=== PATIENT | male | born 1995 | race Two or more races ===

== ENCOUNTER 2017-11-24 12:11 | Emergency (ER) | payer OTHER ==
[2017-11-24 12:33] VITALS: BMI 26.2
--- NOTE | 2017-11-24 13:58 | PDOC ---
History of Present Illness - General Chief Complaint: Weakness Stated Complaint: EVALUATION Time Seen by Provider: 11/24/17 13:57 History Source: [facility] Records Exam Limitations: Clinical Condition - History of Present Illness Initial Comments: 11/24/17 15:02 22M with CP, seizure disorder and MR from [facility] present to the Ed with unconsolable crying and refusal to eat since this morning. Recently hospitalized at [facility] for pneumonia. Vital at this home were 100.5, RR:22, 98%RA, HR:87, BP:140/89. Given tylenol, simethicone, and benadryl. Past History - Past Medical History Allergies/Adverse Reactions: Allergies Allergy/AdvReac Type Severity Reaction Status Date / Time No Known Allergies Allergy Verified 11/24/17 12:35 Home Medications: Ambulatory Orders Amoxicillin Suspension - 400 mg PO BID #100 ml 11/24/17 COPD: No Other medical history: Developemental delay, MR - Suicide/Smoking/Psychosocial Hx Smoking History: Never smoked Have you smoked in the past 12 months: No Information on smoking cessation initiated: No Hx Alcohol Use: No Drug/Substance Use Hx: No Substance Use Type: None Review of Systems - Review of Systems Able to Perform ROS?: No (non-verbal) *Physical Exam - Vital Signs Last Vital Signs Temp Pulse Resp BP Pulse Ox 98.9 F 90 18 116/70 98 11/24/17 12:26 11/24/17 12:26 11/24/17 12:26 11/24/17 12:26 11/24/17 12:26 - Physical Exam General Appearance: Yes: Nourished, Appropriately Dressed, Moderate Distress HEENT: positive: EOMI, [place], TM Bulging, TM Dull (right sided.) Neck: negative: Tender Respiratory/Chest: negative: Chest Tender Cardiovascular: positive: Regular Rhythm, Regular Rate, S1, S2 Gastrointestinal/Abdominal: positive: Normal Bowel Sounds, Flat. negative: Tender Musculoskeletal: positive: Normal Inspection. negative: CVA Tenderness Extremity: positive: Normal Capillary Refill, Normal Inspection Medical Decision Making - Medical Decision Making 11/24/17 15:13 Right tympanic membrane looks dull possibly inflammed will treat for Otitis Media with amoxicillin suspension. . *DC/Admit/Observation/Transfer Diagnosis at time of Disposition: Otitis media - Discharge Dispostion Disposition: HOME Condition at time of disposition: Improved Admit: No - Prescriptions Prescriptions: Amoxicillin Suspension - 400 mg PO BID #100 ml - Referrals - Patient Instructions Printed Discharge Instructions: DI for Otitis Externa Additional Instructions: Come back to the emergency department for any new, worsening or concerning symptoms. Take amoxicillin prescription as directed - Post Discharge Activity
--- NOTE | 2017-11-24 13:59 | PDOC ---
Attending Attestation - Resident Resident Name: Clark Ayala - HPI HPI: 11/24/17 15:18 Pt presents to the ED after brought in from his residential for persistent crying. patient has a history of cerebral palsy and is non verbal at baseline. patient has been tolerating his normal diet and has been afebrile, as per his career development counselor. - Physicial Exam PE: 11/24/17 15:20 Agree with resident exam. Patient is intermittently crying and holding his ears. Lungs are clear. TM is occluded with cerumen on the R side, but is dull and ertythematous on the left side. - Medical Decision Making 11/24/17 15:23 Pt presents to the ED complaining of crying. + dull erythematous TM consistent with otitis. Will treat with amoxicillin. patient is otherwise well appearing , pain appears to be improved after tylenol and will discharge home.
[2017-11-24 14:30] VITALS: TEMP 100.1
[2017-11-24] MEDS ORDERED: AMOXICILLIN ORAL SUSPENSION - 400 MG/5 ML PO ONE (14:49)
[2017-11-24] MEDS ORDERED: AMOXICILLIN ORAL SUSPENSION - 250 MG/5 ML ONE (15:00)
[2017-11-24] MEDS ORDERED: IBUPROFEN 100 MG/5 ML UNIT DOSE CUPS PO ONE (15:09)
[2017-11-24] MEDS ORDERED: IBUPROFEN 100 MG/5 ML UNIT DOSE CUPS ONE (15:11)
[2017-11-24 15:24] VITALS: BP 110/62; PULSE 74
== END 2017-11-24 15:24 | disposition home or self-care (01) ==
LOC: JER 12:11
DX: H66.91 Otitis media, unspecified, right ear (principal); R62.50 Unspecified lack of expected normal physiological development in childhood; F79 Unspecified intellectual disabilities
CPT/HCPCS: 99282-25

== ENCOUNTER 2018-04-19 14:22 | Inpatient (IN) | payer OTHER ==
--- NOTE | 2018-04-19 15:31 | PDOC ---
History of Present Illness - History of Present Illness Initial Comments: 04/19/18 15:59 Mr. Vieyra is a 23 yo male w/ pmh of CP, Seizure disorder, and MR who presents from [facility] after he was observed to have fever/chills earlier today. Per [place] staff he was noted to have a temperature of 100.4; tylenol was given and temperature was 102.5 on recheck 2 hours later. At presentation to ER he was found to have pulse of 94 and oral temperature of 100.5 (confirmed with rectal temperature probe). No other issues known at this time. Allergies: NKDA <Sebastián Key - Last Filed: 04/19/18 16:04> <Christopher Suh - Last Filed: 04/19/18 19:32> - General Chief Complaint: SIRS, Suspected/Possible Stated Complaint: FEVER, SHAKING Time Seen by Provider: 04/19/18 15:27 Past History - Past Medical History COPD: No Other medical history: CEREBRAL PALSY, SEIZURE,DEVELOPMENTAL DELAY, MR, - Suicide/Smoking/Psychosocial Hx Smoking History: Never smoked Have you smoked in the past 12 months: No Hx Alcohol Use: No Drug/Substance Use Hx: No Substance Use Type: None <Sebastián Key - Last Filed: 04/19/18 16:04> <Christopher Suh - Last Filed: 04/19/18 19:32> - Past Medical History Allergies/Adverse Reactions: Allergies Allergy/AdvReac Type Severity Reaction Status Date / Time No Known Allergies Allergy Verified 04/19/18 14:58 Home Medications: Ambulatory Orders Diazepam 10 mg PO BID 04/19/18 Melatonin/Pyridoxine HCl (B6) [Melatonin 5 mg Tablet] 5 mg PO HS 04/19/18 Oxcarbazepine [Trileptal] 300 mg PO BID 04/19/18 Phenobarbital Liquid - [Phenobarbital Liquid 20 MG/5 ML -] 20 mg PO BID Review of Systems - Review of Systems Comments:: 04/19/18 16:01 Unable to obtain further. <Sebastián Key - Last Filed: 04/19/18 16:04> *Physical Exam - Vital Signs Last Vital Signs Temp Pulse Resp BP Pulse Ox 100.5 F H 94 H 19 119/62 97 04/19/18 14:58 04/19/18 14:58 04/19/18 14:58 04/19/18 14:58 04/19/18 14:58 - Physical Exam Comments: 04/19/18 16:01 GENERAL: Awake, alert, and oriented to baseline per aide who is with him, in no acute distress HEAD: No signs of trauma, normocephalic, atraumatic EYES: PERRLA, EOMI, sclera anicteric, conjunctiva clear ENT: Auricles normal inspection, nares patent, oropharynx clear without exudates. Moist mucosa NECK: Normal ROM, supple, no lymphadenopathy, JVD, or masses LUNGS: +Course breath sounds noted. No distress HEART: Regular rate and rhythm, normal S1 and S2, no murmurs, rubs or gallops, peripheral pulses normal and equal bilaterally. ABDOMEN: Soft, nontender, normoactive bowel sounds. No guarding, no rebound. No masses EXTREMITIES: Normal inspection, Normal range of motion, no edema. No clubbing or cyanosis. NEUROLOGICAL: Unable to assess. SKIN: Warm, Dry, normal turgor, no rashes or lesions noted. <Sebastián Key - Last Filed: 04/19/18 16:04> - Vital Signs Last Vital Signs Temp Pulse Resp BP Pulse Ox 100.5 F H 94 H 19 119/62 97 04/19/18 14:58 04/19/18 14:58 04/19/18 14:58 04/19/18 14:58 04/19/18 14:58 <Christopher Suh - Last Filed: 04/19/18 19:32> ED Treatment Course - LABORATORY CBC & Chemistry Diagram: 04/19/18 16:48 04/19/18 18:30 - ADDITIONAL ORDERS Additional order review: Laboratory Results 04/19/18 04/19/18 04/19/18 18:30 16:50 16:48 PT with INR INR PTT (Actin FS) VBG pH POC VBG pCO2 POC VBG pO2 Mixed VBG HCO3 Sodium 142 Potassium 4.1 Chloride 109 H Carbon Dioxide 26 Anion Gap 7 L BUN 19 H Creatinine 1.3 Creat Clearance w eGFR > 60 Random Glucose 80 Lactic Acid 1.1 Calcium 8.4 L Total Bilirubin 0.3 AST 23 ALT 37 Alkaline Phosphatase 90 Troponin I < 0.02 Total Protein 6.8 Albumin 3.7 Urine Color Urine Appearance Urine pH Ur Specific [place] Urine Protein Urine Glucose (UA) Urine Ketones Urine Blood Urine Nitrite Urine Bilirubin Urine Urobilinogen Ur Leukocyte Esterase Urine WBC (Auto) Urine RBC (Auto) Urine Mucus 04/19/18 04/19/18 04/19/18 16:48 16:48 16:00 PT with INR 12.50 INR 1.11 PTT (Actin FS) 34.7 H VBG pH 7.34 POC VBG pCO2 52.6 H POC VBG pO2 25.3 L Mixed VBG HCO3 27.8 H Sodium Cancelled Potassium Cancelled Chloride Cancelled Carbon Dioxide Cancelled Anion Gap Cancelled BUN Cancelled Creatinine Cancelled Creat Clearance w eGFR Cancelled Random Glucose Cancelled Lactic Acid Calcium Cancelled Total Bilirubin Cancelled AST Cancelled ALT Cancelled Alkaline Phosphatase Cancelled Troponin I Total Protein Cancelled Albumin Cancelled Urine Color Urine Appearance Urine pH Ur Specific [place] Urine Protein Urine Glucose (UA) Urine Ketones Urine Blood Urine Nitrite Urine Bilirubin Urine Urobilinogen Ur Leukocyte Esterase Urine WBC (Auto) Urine RBC (Auto) Urine Mucus 04/19/18 16:00 PT with INR INR PTT (Actin FS) VBG pH POC VBG pCO2 POC VBG pO2 Mixed VBG HCO3 Sodium Potassium Chloride Carbon Dioxide Anion Gap BUN Creatinine Creat Clearance w eGFR Random Glucose Lactic Acid Calcium Total Bilirubin AST ALT Alkaline Phosphatase Troponin I Total Protein Albumin Urine Color Ltyellow Urine Appearance Clear Urine pH 6.0 Ur Specific [place] 1.028 Urine Protein 2+ H Urine Glucose (UA) Negative Urine Ketones Trace H Urine Blood 3+ H Urine Nitrite Negative Urine Bilirubin Negative Urine Urobilinogen Negative Ur Leukocyte Esterase Negative Urine WBC (Auto) 4 Urine RBC (Auto) 139 Urine Mucus Rare 04/19/18 16:48 RBC 5.69 H MCV 91.4 MCHC 31.7 L RDW 17.3 H MPV 8.0 Neutrophils % 85.5 H Lymphocytes % 8.4 Monocytes % 5.3 Eosinophils % 0.3 Basophils % 0.5 - Medications Given in the ED: ED Medications Discontinued Medications Generic Name Dose Route Start Last Admin Trade Name Freq PRN Reason Stop Dose Admin Acetaminophen 650 mg 04/19/18 15:53 04/19/18 17:16 Tylenol Suppository - OR 04/19/18 15:54 650 mg ONCE ONE Administration Sodium Chloride 1,000 mls @ 1,000 mls/hr 04/19/18 15:48 04/19/18 17:38 Normal Saline - IV 04/19/18 16:47 1,000 mls/hr ASDIR STA Administration <Christopher Suh - Last Filed: 04/19/18 19:32> Medical Decision Making - Medical Decision Making 04/19/18 16:03 Mr. Vieyra is a 23 yo nonverbal male who presents from [facility] for fever of unknown origin. Sepsis protocol initiated. <Sebastián Key - Last Filed: 04/19/18 16:04> *DC/Admit/Observation/Transfer <Sebastián Key - Last Filed: 04/19/18 16:04> - Discharge Dispostion Decision to Admit order: Yes <Christopher Suh - Last Filed: 04/19/18 19:32> Diagnosis at time of Disposition: Sepsis Qualifiers: Sepsis type: sepsis due to unspecified organism Qualified Code(s): A41.9 - Sepsis, unspecified organism - Discharge Dispostion Condition at time of disposition: Stable
[2018-04-19] MEDS ORDERED: SODIUM CHLORIDE 1,000 ML IV STA (15:48)
[2018-04-19] MEDS ORDERED: ACETAMINOPHEN 650 MG SUPP.RECT PR ONE (15:53)
--- NOTE | 2018-04-19 15:55 | PDOC ---
Attending Attestation - HPI HPI: 04/19/18 16:41 Pt is a 22 yo M resident from [facility] with a PMHx of Cerebral palsy, MR, Developmental delay, seizures who presents to the ED with persistent fever. As per caretakers, patient developed fever at the center, (Tmax 100.4) and was given Tylenol. Patient fever elevated to 102.0 and was sent to the ED for further evaluation. Patient denies cough, congestion, n/v, abdominal pain. - Medical Decision Making 04/19/18 16:42 Documentation prepared by Joann White, acting as medical technologist for Shakira Lopes MD <Joann White - Last Filed: 04/19/18 16:42> - Resident Resident Name: Sebastián Key - ED Attending Attestation I have performed the following: I have examined & evaluated the patient, The case was reviewed & discussed with the resident, I agree w/resident's findings & plan, Exceptions are as noted - Physicial Exam PE: GENERAL: Awake, alert, in no acute distress. Nonverbal. HEAD: No signs of trauma EYES: PERRLA, EOMI, sclera anicteric, conjunctiva clear ENT: Auricles normal inspection, hearing grossly normal, nares patent, oropharynx clear without exudates. Moist mucosa NECK: Normal ROM, supple, no lymphadenopathy, JVD, or masses LUNGS: Breath sounds equal, clear to auscultation bilaterally. No wheezes, and no crackles HEART: Regular rate and rhythm, normal S1 and S2, no murmurs, rubs or gallops ABDOMEN: Soft, nontender, normoactive bowel sounds. No guarding, no rebound. No masses EXTREMITIES: Normal range of motion, no edema. No clubbing or cyanosis. No cords, erythema, or tenderness NEUROLOGICAL: Cranial nerves II through XII grossly intact. Motor and sensation intact. SKIN: Warm, Dry, normal turgor, no rashes or lesions noted. +Tactile fever. - Medical Decision Making Pt nonverbal at baseline, presents with fever. Sepsis workup initiated. <Shakira Lopes - Last Filed: 04/22/18 17:53>
[2018-04-19] MEDS ORDERED: ACETAMINOPHEN INJECTION 100 ML IVPB ONE (15:57)
[2018-04-19 16:53] LABS: VENOUS PH 7.34 (7.32-7.42)
[2018-04-19] MEDS ORDERED: ACETAMINOPHEN 120 MG SUPP.RECT RC ONE (16:53)
[2018-04-19 16:54] LABS: VENOUS PC02 52.6 mmHg (38-52); VENOUS PO2 25.3 mmHg (28-48)
[2018-04-19] MEDS ORDERED: ACETAMINOPHEN 650 MG SUPP.RECT ONE (16:54)
[2018-04-19 16:55] LABS: BASO % 0.5 % (0-2.0); EOS % 0.3 % (0-4.5); HEMOGLOBIN 16.5 GM/dL (11.7-16.9); LYMPH % 8.4 % (8-40); MCH 28.9 pg (25.7-33.7); MCHC 31.7 g/dl (32.0-35.9); MEAN CELL VOLUME 91.4 fl (80-96); MONO % 5.3 % (3.8-10.2); NEUT % 85.5 % (42.8-82.8); PLATELET COUNT 245 K/MM3 (134-434); RBC 5.69 M/mm3 (4.00-5.60); RDW 17.3 % (11.9-15.9); WHITE BLOOD COUNT 16.2 K/mm3 (4.0-10.0)
[2018-04-19 17:11] LABS: INR 1.11 (0.82-1.09); PROTHROMBIN TIME (PATIENT) 12.5 SEC (9.7-13.0)
[2018-04-19 17:14] LABS: ACTIVATED PTT 34.7 SECONDS (26.9-34.4)
[2018-04-19 18:41] LABS: URINE APPEARANCE CLEAR; URINE BILIRUBIN NEGATIVE (<2.0 mg/dL); URINE COLOR LTYELLOW; URINE GLUCOSE (UA) NEGATIVE (NEGATIVE); URINE KETONE TRACE (NEGATIVE); URINE LEUK ESTERASE NEGATIVE (NEGATIVE); URINE NITRITE NEGATIVE (NEGATIVE); URINE UROBILINOGEN NEGATIVE mg/dL (0.2-1.0)
[2018-04-19 18:43] LABS: URINE PROTEIN 2+ (NEGATIVE)
[2018-04-19 18:46] LABS: URINE MUCUS RARE
[2018-04-19] MEDS ORDERED: PIPERACILLIN/TAZOB 3.375 GM 3.375 GM in DEXTROSE 5%-WATER - 50 ML IVPB ONE (18:47)
[2018-04-19] MEDS ORDERED: VANCOMYCIN 1,000 MG in DEXTROSE 5%-WATER - 250 ML IVPB ONE (18:47)
--- NOTE | 2018-04-19 19:00 | PDOC ---
*Physical Exam - Vital Signs Last Vital Signs Temp Pulse Resp BP Pulse Ox 100.5 F H 94 H 19 119/62 97 04/19/18 14:58 04/19/18 14:58 04/19/18 14:58 04/19/18 14:58 04/19/18 14:58 ED Treatment Course - LABORATORY CBC & Chemistry Diagram: 04/19/18 16:48 04/19/18 18:30 - ADDITIONAL ORDERS Additional order review: Laboratory Results 04/19/18 04/19/18 04/19/18 16:50 16:48 16:48 PT with INR INR PTT (Actin FS) VBG pH POC VBG pCO2 POC VBG pO2 Mixed VBG HCO3 Sodium Cancelled Potassium Cancelled Chloride Cancelled Carbon Dioxide Cancelled Anion Gap Cancelled BUN Cancelled Creatinine Cancelled Creat Clearance w eGFR Cancelled Random Glucose Cancelled Lactic Acid 1.1 Calcium Cancelled Total Bilirubin Cancelled AST Cancelled ALT Cancelled Alkaline Phosphatase Cancelled Troponin I < 0.02 Total Protein Cancelled Albumin Cancelled Urine Color Urine Appearance Urine pH Ur Specific [place] Urine Protein Urine Glucose (UA) Urine Ketones Urine Blood Urine Nitrite Urine Bilirubin Urine Urobilinogen Ur Leukocyte Esterase Urine WBC (Auto) Urine RBC (Auto) Urine Mucus 04/19/18 04/19/18 04/19/18 16:48 16:00 16:00 PT with INR 12.50 INR 1.11 PTT (Actin FS) 34.7 H VBG pH 7.34 POC VBG pCO2 52.6 H POC VBG pO2 25.3 L Mixed VBG HCO3 27.8 H Sodium Potassium Chloride Carbon Dioxide Anion Gap BUN Creatinine Creat Clearance w eGFR Random Glucose Lactic Acid Calcium Total Bilirubin AST ALT Alkaline Phosphatase Troponin I Total Protein Albumin Urine Color Ltyellow Urine Appearance Clear Urine pH 6.0 Ur Specific [place] 1.028 Urine Protein 2+ H Urine Glucose (UA) Negative Urine Ketones Trace H Urine Blood 3+ H Urine Nitrite Negative Urine Bilirubin Negative Urine Urobilinogen Negative Ur Leukocyte Esterase Negative Urine WBC (Auto) 4 Urine RBC (Auto) 139 Urine Mucus Rare 04/19/18 16:48 RBC 5.69 H MCV 91.4 MCHC 31.7 L RDW 17.3 H MPV 8.0 Neutrophils % 85.5 H Lymphocytes % 8.4 Monocytes % 5.3 Eosinophils % 0.3 Basophils % 0.5 - Medications Given in the ED: ED Medications Discontinued Medications Generic Name Dose Route Start Last Admin Trade Name Andrei PRN Reason Stop Dose Admin Acetaminophen 650 mg 04/19/18 15:53 04/19/18 17:16 Tylenol Suppository - AK 04/19/18 15:54 650 mg ONCE ONE Administration Sodium Chloride 1,000 mls @ 1,000 mls/hr 04/19/18 15:48 04/19/18 17:38 Normal Saline - IV 04/19/18 16:47 1,000 mls/hr ASDIR STA Administration Medical Decision Making - Medical Decision Making 04/19/18 18:53 23 yo male from [facility] p/w history of rigors and fevers 04/19/18 19:00 Review labs; leukocytosis w mild shift, cxr no infiltrates appreciable, urine no leuk,no nitrates blood cultures sent Empiric antibiotics started -PT ADMITTED W CONCERN FOR BACTEREMIA 04/19/18 22:34 *DC/Admit/Observation/Transfer Diagnosis at time of Disposition: Sepsis - Discharge Dispostion Condition at time of disposition: Stable - Referrals - Patient Instructions - Post Discharge Activity
[2018-04-19 19:02] LABS: ALBUMIN 3.7 g/dl (3.4-5.0); ALK PHOS 90 U/L (45-117); ANION GAP 7 (8-16); BILIRUBIN,TOTAL 0.3 mg/dL (0.2-1.0); BLOOD UREA NITROGEN 19 mg/dL (7-18); CALCIUM 8.4 mg/dL (8.5-10.1); CHLORIDE 109 mmol/L (98-107); CO2 26 mmol/L (21-32); CREATININE 1.3 mg/dL (0.7-1.3); GLUCOSE,RANDOM 80 mg/dL (74-106); POTASSIUM 4.1 mmol/L (3.5-5.1); SGOT/AST 23 U/L (15-37); SGPT/ALT 37 U/L (12-78); SODIUM 142 mmol/L (136-145); TOT PROT 6.8 g/dl (6.4-8.2)
[2018-04-19] MEDS ORDERED: VANCOMYCIN 1 GRAM (PRE-DOCKED) 1,000 MG/250 ML BAG IVPB ONE (19:18)
[2018-04-19] MEDS ORDERED: PIPERACILLIN/TAZOB 3.375 GM 3.375 GM/50 ML BAG IVPB ONE (19:18)
--- NOTE | 2018-04-19 19:20 | PN ---
Teaching Attending Note Name of Resident: Juliette Martinez ATTENDING PHYSICIAN STATEMENT I saw and evaluated the patient. I reviewed the resident's note and discussed the case with the resident. I agree with the resident's findings and plan as documented. SUBJECTIVE: Patient is a 23 year old man - a resident of [facility] with chief complaint of fever. He has Cerebral palsy, Mental retardation, Developmental delay, and seizures. He was in [facility] last week for fever and seizures and Keppra was added to his antiseizure regimen. He has also had intermittent seizures today as per the Aide for the Home. He is nonverbal and there has been no reported changes in his mental status. Tmax [id number] and there is no associated SOB, cough, congestion, nausea, vomiting, diarrhea or abdominal pain. Had left otitis media in November 2017. OBJECTIVE: Non verbal. Awake, in no acute distress Vital Signs Period Temp Pulse Resp BP Sys/Holly Pulse Ox Last 24 Hr 100.5 F 94 19 119/62 97 HEENT: No Jaundice, eye redness or discharge, PERRLA, EOMI. No oropharyngeal erythema. External ears are normal and nontender. No nasal discharge. Neck: Supple, nontender. No palpable adenopathy or thyromegaly. No JVD Chest: Good effort. Clear to auscultation and percussion. Heart: Regular. No S3, rub or murmur Abdomen: Not distended, soft, nontender and no HSM. No rebound or guarding. Normoactive bowel sounds. Ext: Peripheral pulses intact. No leg edema. Flexion contracture of lower extremities. No sacral decubitus ulcer. Skin: Warm and dry. No petechiae, rash or ecchymosis. Neuro: Alert. Nonverbal. Mental retardation. Moves upper extremities. No neck stiffness. Sensation grossly intact in all four extremities. Home Medications Medication Instructions Recorded Diazepam 10 mg PO BID 04/19/18 Melatonin/Pyridoxine HCl (B6) 5 mg PO HS 04/19/18 [Melatonin 5 mg Tablet] Oxcarbazepine [Trileptal] 300 mg PO BID 04/19/18 Phenobarbital Liquid - 20 mg PO BID 04/19/18 [Phenobarbital Liquid 20 MG/5 ML -] Current Medications Generic Name Dose Route Start Last Admin Trade Name Freq PRN Reason Stop Dose Admin Vancomycin HCl 1,000 mg/ 250 mls @ 166.667 mls/hr 04/19/18 18:47 Dextrose IVPB 04/19/18 20:16 ONCE ONE Protocol Laboratory Results - last 24 hr 04/19/18 04/19/18 04/19/18 16:00 16:00 16:48 WBC 16.2 H RBC 5.69 H Hgb 16.5 Hct 52.0 H MCV 91.4 MCH 28.9 MCHC 31.7 L RDW 17.3 H Plt Count 245 MPV 8.0 Neutrophils % 85.5 H Lymphocytes % 8.4 Monocytes % 5.3 Eosinophils % 0.3 Basophils % 0.5 Nucleated RBC % 0 PT with INR INR PTT (Actin FS) VBG pH 7.34 POC VBG pCO2 52.6 H POC VBG pO2 25.3 L Mixed VBG HCO3 27.8 H Sodium Potassium Chloride Carbon Dioxide Anion Gap BUN Creatinine Creat Clearance w eGFR Random Glucose Lactic Acid Calcium Total Bilirubin AST ALT Alkaline Phosphatase Troponin I Total Protein Albumin Urine Color Ltyellow Urine Appearance Clear Urine pH 6.0 Ur Specific [place] 1.028 Urine Protein 2+ H Urine Glucose (UA) Negative Urine Ketones Trace H Urine Blood 3+ H Urine Nitrite Negative Urine Bilirubin Negative Urine Urobilinogen Negative Ur Leukocyte Esterase Negative Urine WBC (Auto) 4 Urine RBC (Auto) 139 Urine Mucus Rare 04/19/18 04/19/18 04/19/18 16:48 16:48 16:48 WBC RBC Hgb Hct MCV MCH MCHC RDW Plt Count MPV Neutrophils % Lymphocytes % Monocytes % Eosinophils % Basophils % Nucleated RBC % PT with INR 12.50 INR 1.11 PTT (Actin FS) 34.7 H VBG pH POC VBG pCO2 POC VBG pO2 Mixed VBG HCO3 Sodium Cancelled Potassium Cancelled Chloride Cancelled Carbon Dioxide Cancelled Anion Gap Cancelled BUN Cancelled Creatinine Cancelled Creat Clearance w eGFR Cancelled Random Glucose Cancelled Lactic Acid Calcium Cancelled Total Bilirubin Cancelled AST Cancelled ALT Cancelled Alkaline Phosphatase Cancelled Troponin I < 0.02 Total Protein Cancelled Albumin Cancelled Urine Color Urine Appearance Urine pH Ur Specific [place] Urine Protein Urine Glucose (UA) Urine Ketones Urine Blood Urine Nitrite Urine Bilirubin Urine Urobilinogen Ur Leukocyte Esterase Urine WBC (Auto) Urine RBC (Auto) Urine Mucus 04/19/18 04/19/18 16:50 18:30 WBC RBC Hgb Hct MCV MCH MCHC RDW Plt Count MPV Neutrophils % Lymphocytes % Monocytes % Eosinophils % Basophils % Nucleated RBC % PT with INR INR PTT (Actin FS) VBG pH POC VBG pCO2 POC VBG pO2 Mixed VBG HCO3 Sodium 142 Potassium 4.1 Chloride 109 H Carbon Dioxide 26 Anion Gap 7 L BUN 19 H Creatinine 1.3 Creat Clearance w eGFR > 60 Random Glucose 80 Lactic Acid 1.1 Calcium 8.4 L Total Bilirubin 0.3 AST 23 ALT 37 Alkaline Phosphatase 90 Troponin I Total Protein 6.8 Albumin 3.7 Urine Color Urine Appearance Urine pH Ur Specific [place] Urine Protein Urine Glucose (UA) Urine Ketones Urine Blood Urine Nitrite Urine Bilirubin Urine Urobilinogen Ur Leukocyte Esterase Urine WBC (Auto) Urine RBC (Auto) Urine Mucus ASSESSMENT AND PLAN: 1. Fever of unknown origin - Patient will be admitted as an inpatient for evaluation and treatment of FUO associated with seizures. Sepsis workup done; will continue vancomycin and zosyn. According to the Staff at the Home, he has not had a seizure for a while prior to this week. There is no obvious source. We are consulting Neurology and D, getting a head CT scan before possible spinal tap to rule out [employer] infection. Patient also has erythrocytosis, mild proteinuria and hematuria (anderson-induced?). Will give IV fluids to correct any dehydration that may be causing erythrocytosis. 2. Seizure - Will send Keppra level and give 1000 mg IV Keppra tonight and continue with PO keppra tomorrow. 3. Mental retardation/Cerebral Palsy - Continue comprehensive care and nutritional support. 4. DVT prophylaxis - Heparin 5000u sq tid. 5. Advance directives - Full code
--- NOTE | 2018-04-19 19:31 | HP ---
CHIEF COMPLAINT: sent from [place] for fever (Tmax 102.5F) and rigors PCP: Dr. Castellanos, [facility] HISTORY OF PRESENT ILLNESS: 23yo young man with PMH of cerebral palsy, developmental delay, and seizure disorder who was sent from [facility] for evaluation of fever and rigors since earlier this morning. At 10;30am the patient appeared to be in mild discomfort, was noted to have chills and rectal Tmax 102.5 (recorded at 12:30p) . Per infection control manager at [place], patient was discharged from [facility] 2 days ago (04/17) for status epilepticus. He had been seizure free for many years until last week when he was noted to be seizing for ~15minutes; he was admitted to [facility] for 2-3days for status epilepticus, and discharged with the addition of Keppra 1000mg BID and discontinuation of Phenobarbital. No other changes in his medications. Per infection control manager, patient was afebrile when he returned to [place] on 04/17 and remained afebrile until this morning. Patient has not had cough, dyspnea, hypoxia, congestion, rhinorrhea, increased oral secretions, diarrhea, melena, or hematochezia. No vomiting or hematuria. ED course was notable for VS: T rectal 100.5, HR 94, BP 119/62, RR 19, SpaO2 97 % on RA. CXR and UA not suggestive of infection. The [place] aide who is at bedside states that he thought patient had short seizure (less than 1 minutes) while in the ED (not witnessed by ED staff); aide also reports that he feels that the patient has not been at his baseline mental status, but appearing more uncomfortable. In the ED, patient received NS x 1L and 1x dose of Vancomycin and Zosyn. Recent Travel: none PAST MEDICAL HISTORY: see HPI PAST SURGICAL HISTORY: Social History: resident of [facility] Smoking: never Alcohol: none Drugs: none Family History: non-contributory Allergies: No Known Allergies Allergy (Verified 04/19/18 14:58) HOME MEDICATIONS: Medication Instructions Recorded Diazepam 10 mg PO BID 04/19/18 Diphenhydramine [Benadryl Oral 25 mg PO Q6H PRN 04/19/18 Solution -] Melatonin 5 mg PO HS 04/19/18 Oxcarbazepine [Trileptal] 300 mg PO BID 04/19/18 levETIRAcetam [Keppra Oral 1,000 mg PO BID 04/19/18 Solution -] REVIEW OF SYSTEMS: unable to be obtained PHYSICAL EXAMINATION Vital Signs - 24 hr 04/19/18 14:58 Temperature 100.5 F H Pulse Rate 94 H Respiratory 19 Rate Blood Pressure 119/62 O2 Sat by Pulse 97 Oximetry (%) GENERAL: awake, alert, nad, non-verbal HEENT: PERRL, sclera anicteric, conjunctiva clear, oropharynx clear without exudates, mmm, no nasal discharge, no frontal or maxillary sinus tenderness NECK: supple, no nuchal rigidity, no cervical or submandibular LAD LUNGS: +airway entry, no wheezes/rale/rhonchi appreciated, no increased work of breathing HEART: rrr, normal s1/s2, no m/r/g ABDOMEN: soft, NTND, no HSM : no scrotal swelling or erythema, no suprapubic or CVA tenderness MUSCULOSKELETAL: LE contracted bilaterally UPPER EXTREMITIES: 2+ radial pulses, wwp, no edema LOWER EXTREMITIES: 2+ DP pulses, wwp, no edema NEUROLOGICAL: Cranial nerves II-XII intact grossly intact SKIN: Warm, dry, normal turgor, no rashes or lesions noted CBC, BMP 04/19/18 16:48 04/19/18 18:30 Hepatic Panel Total Bilirubin 0.3 mg/dL (0.2-1.0) 04/19/18 18:30 AST 23 U/L (15-37) 04/19/18 18:30 ALT 37 U/L (12-78) 04/19/18 18:30 Alkaline Phosphatase 90 U/L (45-117) 04/19/18 18:30 Albumin 3.7 g/dl (3.4-5.0) 04/19/18 18:30 04/19/18 16:48 Lactic Acid 1.1 Troponin I < 0.02 Urine Test Results Urine Color Ltyellow 04/19/18 16:00 Urine Appearance Clear 04/19/18 16:00 Urine pH 6.0 (5.0-8.0) 04/19/18 16:00 Ur Specific [place] 1.028 (1.001-1.035) 04/19/18 16:00 Urine Protein 2+ (NEGATIVE) H 04/19/18 16:00 Urine Glucose (UA) Negative (NEGATIVE) 04/19/18 16:00 Urine Ketones Trace (NEGATIVE) H 04/19/18 16:00 Urine Blood 3+ (NEGATIVE) H 04/19/18 16:00 Urine Nitrite Negative (NEGATIVE) 04/19/18 16:00 Urine Bilirubin Negative (<2.0 mg/dL) 04/19/18 16:00 Ur Leukocyte Esterase Negative (NEGATIVE) 04/19/18 16:00 Urine Mucus Rare 04/19/18 16:00 Urine WBC 4 Urine RBC 139 CXR: no focal consolidations or pleural effusions; no acute pathology EKG: NSR, rate 91, Biatrial enlargement, QTc 376 ASSESSMENT/PLAN: 23yo man with PMH of CP, MR, seizure disorder with recent admission for status epilepticus last week who sent from [place] for fever and chills since this morning and found to have Tmax 100.5 (102.5 at facility). #SIRS+ (fever, tachycardia, leukocytosis) with unclear infectious source; Unlikely pulmonary source given lack of cough/congestion/hypoxia, etc and negative CXR; lower suspicion for liver/biliary etiology as LFTs wnl and non- focal abdominal exam; UA negative; Given recent breakthrough seizure and fever, consider neurological infectious source (meningitis/encephalitis). -C/w Vancomycin and Zosyn -will give 1x dose Ceftriaxone 2gm IV -ID consulted -Check Head CT -F/u blood and urine cultures #seizure disorder, ? intermittent seizures -Neurology consulted -Check Head CT -Check Keppra level -Give Keppra 1000mg IV now, and c/w home Keppra 1000mg PO BID tomorrow AM -c/w home Diazepam and Trileptal #hematuria, likely 2/2 traumatic catheterization, no reported history at [place] -monitor and IVFs #Cerebral palsy/MR #FEN NS @100cc/hr lytes wnl Regular chopped with thin liquids, aspiration precautions #DVT PPX - HSQ Q8H #DISPO: m/s FULL code d/w Dr. Bethea Visit type - Emergency Visit Emergency Visit: Yes ED Registration Date: 04/19/18 Care time: The patient presented to the Emergency Department on the above date and was hospitalized for further evaluation of their emergent condition. - New Patient This patient is new to me today: Yes Date on this admission: 04/20/18 - Critical Care Critical Care patient: No Hospitalist Screening - Colonoscopy Questionnaire Colonoscopy Questionnaire: Colonoscopy Questionnaire - Patient: 50 - 75 years old and never had a screening colonoscopy: No History of colon or rectal polyps, or CA: Unknown History of IBD, Crohn's disease or UC: Unknown History of abdominal radiation therapy as a child: Unknown - Relative: 1 with colon or rectal CA, or polyps at age 60 or younger: Unknown Colon or rectal CA diagnosed at age 45 or younger: Unknown Multiple relatives with colon or rectal CA: Unknown - Outcome: Screening Result: Negative Screen
[2018-04-19] MEDS ORDERED: SODIUM CHLORIDE 1,000 ML IV SCH (21:00)
[2018-04-19] MEDS ORDERED: diphenhydrAMINE HCL 12.5 MG/5 ML UNIT-DOSE CUPS PO PRN (21:08)
[2018-04-19] MEDS ORDERED: ACETAMINOPHEN 650 MG/20.3 ML ORAL SOLUTION (CUPS) PO PRN (21:10)
[2018-04-19] MEDS ORDERED: levETIRAcetam 500 MG/5 ML INJECTION VIAL IVPB ONE (21:15)
[2018-04-19] MEDS ORDERED: diazePAM 5 MG TABLET PO SCH (22:00)
[2018-04-19] MEDS ORDERED: CEFTRIAXONE 2 GM in DEXTROSE 5%-WATER 100 ML IVPB ONE (22:45)
[2018-04-19] MEDS ORDERED: DEXTROSE 5%-WATER 100 ML IVPB ONE (23:02)
[2018-04-19] MEDS: HEPARIN NA (PORCINE) 5,000 UNITS/ML 1ML VIAL SQ SCH (23:17)
[2018-04-19] MEDS: diazePAM 5 MG TABLET PO SCH (23:26)
[2018-04-19 23:41] VITALS: BMI 24.5
[2018-04-19] MEDS: MELATONIN 5 MG TABLETS PO SCH (23:56)
[2018-04-19] MEDS: OXcarbazepine 300 MG/5 ML 250 ML BULK BOTTLE PO SCH (23:56)
[2018-04-20] MEDS ORDERED: DEXTROSE 5%-WATER - 50 ML IVPB ONE (00:34)
[2018-04-20] MEDS ORDERED: PIPERACILLIN/TAZOBACTAM 3.375 GM VIAL IVPB ONE (00:34)
[2018-04-20] MEDS ORDERED: PIPERACILLIN/TAZOB 3.375 GM 3.375 GM in DEXTROSE 5%-WATER - 50 ML IVPB SCH ×2 (02:00→18:00)
[2018-04-20] MEDS: HEPARIN NA (PORCINE) 5,000 UNITS/ML 1ML VIAL SQ SCH ×3 (06:11→21:14)
--- NOTE | 2018-04-20 07:45 | PN ---
Progress Note, Physician Chief Complaint: ID Full note dictated Apparently just discharge 2 days ago [facility] for seizures and fever according to his aide Returns with same Had EEG done at the other hospital ?results - Current Medication List Current Medications: Active Medications Acetaminophen (Tylenol Oral Solution -) 650 mg PO Q6H PRN PRN Reason: FEVER Diazepam (Valium -) 10 mg PO BID [facility] Last Admin: 04/19/18 23:26 Dose: 10 mg Diphenhydramine HCl (Benadryl Oral Solution -) 25 mg PO Q6H PRN PRN Reason: AGITATION Heparin Sodium (Porcine) (Heparin -) 5,000 unit SQ TID [facility] Last Admin: 04/20/18 06:11 Dose: 5,000 unit Sodium Chloride (Normal Saline -) 1,000 mls @ 100 mls/hr IV ASDIR [facility] Last Admin: 04/19/18 22:58 Dose: 100 mls/hr Piperacillin Sod/Tazobactam (Sod 3.375 gm/ Dextrose) 50 mls @ 100 mls/hr IVPB Q8H-IV [facility]; Protocol Piperacillin Sod/Tazobactam (Sod 3.375 gm/ Dextrose) 50 mls @ 100 mls/hr IVPB Q8H-IV [facility]; Protocol Stop: 04/20/18 10:29 Last Admin: 04/20/18 01:57 Dose: 100 mls/hr Levetiracetam (Keppra Oral Solution -) 1,000 mg PO BID [facility] Melatonin (Melatonin) 5 mg PO HS [facility] Last Admin: 04/19/18 23:56 Dose: 5 mg Oxcarbazepine (Trileptal) 300 mg PO BID [facility] Last Admin: 04/19/18 23:56 Dose: 300 mg - Objective Vital Signs: Vital Signs Temperature 97.5 F L 04/20/18 06:00 Pulse Rate 86 04/20/18 06:00 Respiratory Rate 20 04/20/18 06:00 Blood Pressure 160/89 04/20/18 06:00 O2 Sat by Pulse Oximetry (%) 100 04/19/18 21:30 Constitutional: Yes: No Distress Cardiovascular: Yes: S1, S2 Respiratory: Yes: WNL, Regular, CTA Bilaterally Gastrointestinal: Yes: Soft. No: Tenderness Edema: No Labs: INR, PTT INR 1.11 (0.82-1.09) 04/19/18 16:48 Problem List - Problems (1) Fever, unknown origin Code(s): R50.9 - FEVER, UNSPECIFIED (2) Sepsis Code(s): A41.9 - SEPSIS, UNSPECIFIED ORGANISM Qualifiers: Sepsis type: sepsis due to unspecified organism Qualified Code(s): A41.9 - Sepsis, unspecified organism (3) Seizure Code(s): R56.9 - UNSPECIFIED CONVULSIONS Assessment/Plan Microbiology Laboratory Tests 04/19/18 04/19/18 04/19/18 16:00 16:48 18:30 WBC 16.2 H Plt Count 245 BUN 19 H ALT 37 Alkaline Phosphatase 90 Urine RBC (Auto) 139 Assessment Similar presentations includes seizures with fever unclear source. He does not have pneumonia nor seem to have respiratory infection. He does have hematuria suggesting possible urinary tract as possible source. Lastly must consider ELECTRICAL DESIGN TECHNOLOGIST as possibility though fully alert . Plan As discussed cover with Arturo and Raina pending cultures LP if fevers persist CRP Alfa IZQUIERDO
[2018-04-20 07:47] LABS: BASO % 0.5 % (0-2.0); EOS % 2.5 % (0-4.5); HEMATOCRIT 46.4 % (35.4-49); HEMOGLOBIN 14.9 GM/dL (11.7-16.9); MCH 29.6 pg (25.7-33.7); MEAN CELL VOLUME 92.4 fl (80-96); MEAN PLT VOLUME 8.2 fl (7.5-11.1); MONO % 5.3 % (3.8-10.2); NEUT % 70.7 % (42.8-82.8); PLATELET COUNT 165 K/MM3 (134-434); RBC 5.03 M/mm3 (4.00-5.60); RDW 17.6 % (11.9-15.9); WHITE BLOOD COUNT 6.2 K/mm3 (4.0-10.0)
[2018-04-20 08:01] LABS: CHLORIDE 109 mmol/L (98-107); SODIUM 142 mmol/L (136-145)
[2018-04-20 08:02] LABS: INR 1.2 (0.82-1.09); PROTHROMBIN TIME (PATIENT) 13.6 SEC (9.7-13.0)
[2018-04-20 08:08] LABS: ALBUMIN 3.3 g/dl (3.4-5.0); ALK PHOS 75 U/L (45-117); ANION GAP 7 (8-16); BILIRUBIN,TOTAL 0.4 mg/dL (0.2-1.0); BLOOD UREA NITROGEN 13 mg/dL (7-18); CALCIUM 7.8 mg/dL (8.5-10.1); CO2 26 mmol/L (21-32); CREATININE 1.1 mg/dL (0.7-1.3); GLUCOSE,RANDOM 69 mg/dL (74-106); SGOT/AST 15 U/L (15-37); SGPT/ALT 29 U/L (12-78)
--- NOTE | 2018-04-20 08:30 | CONS ---
DATE OF CONSULTATION: DATE OF DICTATION: 04/20/2018 HISTORY OF PRESENT ILLNESS: This is a 23-year-old young man from the [facility] with a history of cerebral palsy and severe developmental delay as well as seizure disorder. He was admitted through the emergency room with rectal temperature of 102.5 and according to the notes, having rigors yesterday morning. He had only recently been discharged from [facility] on the for what was described as status epilepticus as well as a fever this history being noted by his aide. While in the [facility], he apparently had imaging of the brain as well as EEG studies done the results of which are currently not available. He has been seizure free for many years until he had a seizure last week, lasting 15 minutes for which he was admitted to [facility]. His seizure medications were adjusted and he was discharged only to be readmitted the next day with ? recurrent fever ?rigors. He does not offer any cough, shortness of breath, or other obvious complaints, though he cannot offer any history. He was empirically treated here with broad-spectrum antibiotics through the emergency room and cultures are pending. PAST MEDICAL HISTORY: As noted above. MEDICATIONS: Keppra, Trileptal, and Diazepam. ALLERGIES: None known. FAMILY HISTORY: Reviewed, noncontributory. SOCIAL HISTORY: Resident of a long-term residential facility. Nonsmoker. No history of substance abuse. REVIEW OF SYSTEMS: Respiratory: No cough. Cardiac: No history of congenital heart disease, chest pain, syncope. Gastrointestinal: No obvious abdominal pain, vomiting, diarrhea, blood per rectum. Genitourinary: Hematuria noted without a Bell, according to the nursing staff. Neuromuscular: Recent seizures. PHYSICAL EXAMINATION: General: A young man in no acute distress. Vital Signs: Maximum temperature currently 100.6, now afebrile, blood pressure 160/89, respirations 20, pulse 86. Neck: Supple. Lungs: Clear to P and A. Heart: S1, S2 regular rhythm without audible murmur. Abdomen: Soft, nontender without hepatosplenomegaly. Extremities: Without clubbing, cyanosis, or edema. Skin: No evidence of ulcerations, decubitus ulcers. LABORATORY DATA: White count 16.2, hemoglobin 16.5, platelets 245, BUN 19, creatinine 1.3, liver enzymes within normal limits. Urinalysis: 140 red cells, 4 WBCs. Blood cultures pending. Urine culture pending. Chest x-ray: Unofficial report shows no evidence of pulmonary infiltrate seen. ASSESSMENT: A 23-year-old male with longstanding seizure history with recent presentations to [facility] with seizures and possibly fever just discharged,readmitted with recurrent seizure and fever possible rigors. Source of infection unclear. He does not appear to have pneumonia. Hematuria noted by nursing staff on his diapers, suggesting possible urinary tract issue/infection source of infection. The possibility of a central nervous infection is considered, though this seems less likely given his fully awake mental status and the fact that he had just been discharged from the hospital without that diagnosis, unlikely that he would have acquired meningitis in this short period of time nevertheless central nervous system infection should be considered. His case was discussed with Dr. Weinstein. We will continue him on Vancomycin and Zosyn for broad-spectrum coverage of sepsis unknown etiology unknown etiology. Depending on clinical course,consideration will be given to a lumbar puncture. If fevers and / or seizures persist, neurology consultation should be requested along with records from [facility]. CUAUHTEMOC MORALES M.D. [id number] MTDRichard
--- NOTE | 2018-04-20 08:46 | EKG ---
Test Reason : Blood Pressure : / mmHG Vent. Rate : 091 BPM Atrial Rate : 091 BPM P-R Int : 146 ms QRS Dur : 078 ms QT Int : 306 ms P-R-T Axes : 080 070 076 degrees QTc Int : 376 ms NORMAL SINUS RHYTHM BIATRIAL ENLARGEMENT T WAVE ABNORMALITY, CONSIDER INFERIOR ISCHEMIA ABNORMAL ECG NO PREVIOUS ECGS AVAILABLE Confirmed by MATT IZQUIERDO, STEVIE ([id number]) on 04/20/2018 8:45:59 AM Referred By: Confirmed By:STEVIE GUTIERREZ MD
--- NOTE | 2018-04-20 09:22 | PN ---
Progress Note (short form) - Note Progress Note: resting comfortable as per the Aid in the Room he believes [facility] was treating him with abx but does not know what and what they were treated. reports no seizure like activity since leaving the hospital. reports had 2 normal BM yesterday. did not see any hematuria. and no new rashes. only new medication was keppra whcih was started last week. Current Medications Generic Name Dose Route Start Last Admin Trade Name Freq PRN Reason Stop Dose Admin Acetaminophen 650 mg 04/19/18 21:10 Tylenol Oral Solution - PO Q6H PRN FEVER Diazepam 10 mg 04/19/18 22:00 04/19/18 23:26 Valium - PO 10 mg BID [facility] Administration Diphenhydramine HCl 25 mg 04/19/18 21:08 Benadryl Oral Solution - PO Q6H PRN AGITATION Heparin Sodium (Porcine) 5,000 unit 04/19/18 22:00 04/20/18 06:11 Heparin - SQ 5,000 unit TID [facility] Administration Sodium Chloride 1,000 mls @ 100 mls/hr 04/19/18 21:00 04/19/18 22:58 Normal Saline - IV 100 mls/hr ASDIR [facility] Administration Vancomycin HCl 1,000 mg/ 250 mls @ 166.667 mls/hr 04/20/18 08:00 Dextrose IVPB Q12H [facility] Protocol Piperacillin Sod/Tazobactam 100 mls @ 200 mls/hr 04/20/18 10:00 Sod 4.5 gm/ Dextrose IVPB Q8H-IV [facility] Protocol Levetiracetam 1,000 mg 04/20/18 10:00 Keppra Oral Solution - PO BID [facility] Melatonin 5 mg 04/19/18 22:00 04/19/18 23:56 Melatonin PO 5 mg HS [facility] Administration Oxcarbazepine 300 mg 04/19/18 22:00 04/19/18 23:56 Trileptal PO 300 mg BID [facility] Administration Last Vital Signs Temp Pulse Resp BP Pulse Ox 97.5 F L 86 20 160/89 100 04/20/18 06:00 04/20/18 06:00 04/20/18 06:00 04/20/18 06:00 04/19/18 21:30 General resting comfortable, non verbal CV S1 S2 RRR no murmur/rub/gallop Lungs CTA B/L no wheezing/rales/rhonci Abdomen soft NT/ND Extremities no pedal edema groin no blood noted in the diaper or ureter meatus HEENT resists opening of eyes to evaluae for photophobia. neck is supple CBCD WBC 6.2 K/mm3 (4.0-10.0) D 04/20/18 07:00 RBC 5.03 M/mm3 (4.00-5.60) 04/20/18 07:00 Hgb 14.9 GM/dL (11.7-16.9) 04/20/18 07:00 Hct 46.4 % (35.4-49) 04/20/18 07:00 MCV 92.4 fl (80-96) 04/20/18 07:00 MCHC 32.0 g/dl (32.0-35.9) 04/20/18 07:00 RDW 17.6 % (11.9-15.9) H 04/20/18 07:00 Plt Count 245 K/MM3 (134-434) 04/19/18 16:48 MPV 8.0 fl (7.5-11.1) 04/19/18 16:48 CMP Sodium 142 mmol/L (136-145) 04/20/18 07:00 Potassium 4.0 mmol/L (3.5-5.1) 04/20/18 07:00 Chloride 109 mmol/L (98-107) H 04/20/18 07:00 Carbon Dioxide 26 mmol/L (21-32) 04/20/18 07:00 Anion Gap 7 (8-16) L 04/20/18 07:00 BUN 13 mg/dL (7-18) D 04/20/18 07:00 Creatinine 1.1 mg/dL (0.7-1.3) 04/20/18 07:00 Creat Clearance w eGFR > 60 (>60) 04/20/18 07:00 Calcium 7.8 mg/dL (8.5-10.1) L 04/20/18 07:00 Total Bilirubin 0.4 mg/dL (0.2-1.0) D 04/20/18 07:00 AST 15 U/L (15-37) D 04/20/18 07:00 ALT 29 U/L (12-78) D 04/20/18 07:00 Alkaline Phosphatase 75 U/L (45-117) 04/20/18 07:00 Total Protein 6.0 g/dl (6.4-8.2) L 04/20/18 07:00 Albumin 3.3 g/dl (3.4-5.0) L 04/20/18 07:00 A/P 23yo M from [place] with PMH CP, MR and seizure who has been seizure free for several years then had a seziure last week was treated at [facility] and noted ot have a fever there. antieleptics were adjusted there and was discharged. Return with fever 1. SIRS- Tm 100.6 here and noted to be 102.5 at facility. will need to consider menningitis/encephalitis since new seizure after being seizure free for many years. no signs consistent with menningitis. Head CT done and awaiting read. full workup (UA nad CXR negative). being treated empirically with Vanco/zosyn. ID and neuro consulted. will attempt to obtain records from [facility] to see what patient was treated for there. 2. Hematuria- likely trauma induced as he was straight cath in the ER for urine sample. no reports of hematuria at the facility. now resolved. will monitor 3. BIANCA-likely from sirs and dehydration. now resolved. will cont low dose IVF 4. Cerebral Palsy 5. MR 6. Seizure- no reports of seizure like activity since discharge last week. cont medications 7. DVT ppx- Hep sq Visit type - Emergency Visit Emergency Visit: Yes ED Registration Date: 04/19/18 Care time: The patient presented to the Emergency Department on the above date and was hospitalized for further evaluation of their emergent condition. - New Patient This patient is new to me today: Yes Date on this admission: 04/20/18 - Critical Care Critical Care patient: No - Discharge Referral Referred to [facility] Med P.C.: No
[2018-04-20] MEDS ORDERED: DEXTROSE 5%-WATER 100 ML IVPB ONE ×3 (09:38→23:35)
[2018-04-20] MEDS ORDERED: PT OWN MED DRAWER 7, Y5N ONE ×3 (09:38→21:12)
[2018-04-20] MEDS ORDERED: PIPERACILLIN/TAZOBACTAM 4.5 GM VIAL IVPB ONE ×3 (09:38→23:35)
[2018-04-20] MEDS: PIPERACILLIN/TAZOB 4.5 GM 4.5 GM in DEXTROSE 5%-WATER 100 ML IVPB SCH ×2 (09:41→18:14)
[2018-04-20] MEDS: diazePAM 5 MG TABLET PO SCH ×2 (09:41→21:15)
[2018-04-20] MEDS: SODIUM CHLORIDE 1,000 ML IV SCH (09:42)
[2018-04-20] MEDS: OXcarbazepine 300 MG/5 ML 250 ML BULK BOTTLE PO SCH ×2 (09:42→21:15)
[2018-04-20 10:00] LABS: PLATELET ESTIMATE ADEQUATE
[2018-04-20] MEDS ORDERED: levETIRAcetam 500 MG/5 ML ORAL SOLUTION (UNIT-DOSE CUPS) PO SCH (10:00)
[2018-04-20] MEDS: VANCOMYCIN 1,000 MG in DEXTROSE 5%-WATER - 250 ML IVPB SCH ×2 (11:02→21:14)
--- NOTE | 2018-04-20 15:27 | CON.NEURO ---
Consult - Alcohol/Substance Use Hx Alcohol Use: No - Smoking History Smoking history: Never smoked Have you smoked in the past 12 months: No Home Medications - Allergies Allergies/Adverse Reactions: Allergies Allergy/AdvReac Type Severity Reaction Status Date / Time No Known Allergies Allergy Verified 04/19/18 14:58 - Home Medications Home Medications: Ambulatory Orders Diazepam 10 mg PO BID 04/19/18 Diphenhydramine [Benadryl Oral Solution -] 25 mg PO Q6H PRN 04/19/18 Melatonin 5 mg PO HS 04/19/18 Oxcarbazepine [Trileptal] 300 mg PO BID 04/19/18 levETIRAcetam [Keppra Oral Solution -] 1,000 mg PO BID 04/19/18 Physical Exam-Neuro Vital Signs: Vital Signs Temperature 97.7 F 04/20/18 10:00 Pulse Rate 88 04/20/18 10:00 Respiratory Rate 16 04/20/18 10:00 Blood Pressure 136/69 04/20/18 10:00 O2 Sat by Pulse Oximetry (%) 100 04/19/18 21:30 Labs: CBC, BMP 04/20/18 07:00 04/20/18 07:00 INR, PTT INR 1.20 (0.82-1.09) H 04/20/18 07:00 Assessment/Plan CC Breakthrough seizure HPI 23 year old male , history of cerebral palsy and seizure. Patient was admitted for infection and had status epilepticus and was started on keppra. his phenobarbital was stopped. Patient has a minor seizure in ed. Ct head is unremarkable. He is unable to provide any information. He is receiving antibiotic . His vital has been stable, he has been afrebrile and wbc is coming down. He has no seizure in last 24 hours. PMH as above. SH,ROS,FH reviewed in chart NKDA HOME MEDICATIONS: Medication Instructions Recorded Diazepam 10 mg PO BID 04/19/18 Diphenhydramine [Benadryl Oral 25 mg PO Q6H PRN 04/19/18 Solution -] Melatonin 5 mg PO HS 04/19/18 Oxcarbazepine [Trileptal] 300 mg PO BID 04/19/18 levETIRAcetam [Keppra Oral 1,000 mg PO BID 04/19/18 Solution -] Neurological Examination vital stable and afebril Alert and close eyes whenever I tried to examine his eye. THere is no verbal communication. he is moving all extremities withdraws to pain tracking objects in different direction There is no neck stiffness no face asymmetry CT HEAD unremarkable Assessment 23 year old male history of Developmental delay. He came with fever and breakthrough seizure. Patient has been afrebril and wbc is coming down. CLinically suspician for Meningitis i slow ( as there is no neck stiffness and he is quite alert ). Plan- Hold spinal tap for now, If clinically his condition worsen ( mental status, fever or neck stiffness) , would pursue spinal tap. He may require sedation . - No need for mri at this time - eeg for seizure - feel free to call me if you have any question -Continue same medication ( trileptal and keppra ) at current dose Thanking you so much Derik Penn MD
[2018-04-20] MEDS: levETIRAcetam 500 MG TABLET (FP) PO SCH (21:14)
[2018-04-20] MEDS: MELATONIN 5 MG TABLETS PO SCH (21:15)
[2018-04-21] MEDS: PIPERACILLIN/TAZOB 4.5 GM 4.5 GM in DEXTROSE 5%-WATER 100 ML IVPB SCH ×2 (01:30→09:33)
[2018-04-21] MEDS: HEPARIN NA (PORCINE) 5,000 UNITS/ML 1ML VIAL SQ SCH ×3 (07:10→22:14)
[2018-04-21] MEDS ORDERED: PT OWN MED DRAWER 7, Y5N ONE (09:08)
[2018-04-21] MEDS ORDERED: PIPERACILLIN/TAZOBACTAM 4.5 GM VIAL IVPB ONE (09:09)
[2018-04-21] MEDS ORDERED: DEXTROSE 5%-WATER 100 ML IVPB ONE (09:09)
[2018-04-21] MEDS: levETIRAcetam 500 MG TABLET (FP) PO SCH ×2 (09:33→22:15)
[2018-04-21] MEDS: OXcarbazepine 300 MG/5 ML 250 ML BULK BOTTLE PO SCH ×2 (09:34→22:16)
[2018-04-21] MEDS: diazePAM 5 MG TABLET PO SCH ×2 (09:34→22:15)
[2018-04-21] MEDS: VANCOMYCIN 1,000 MG in DEXTROSE 5%-WATER - 250 ML IVPB SCH (12:15)
--- NOTE | 2018-04-21 13:12 | PN ---
Physical Exam: SUBJECTIVE: Pt's HPI limited due to cerebral palsy and developmental delay. Pt remains at baseline activity per aide at bedside. No acute events overnight noted. OBJECTIVE: Vital Signs Period Temp Pulse Resp BP Sys/Holly Pulse Ox Last 24 Hr 97.7 F-100.8 F 83-92 16-20 86-131/50-78 97-100 GENERAL: Diaphoretic, NAD, awake, alert, and playing with stuffed animal in bed HEENT: ALBA, moist mucosa with drooling noted LUNGS: CTA bilaterally with poor inspiratory effort, no wheezes, no crackles, no accessory muscle use. HEART: RRR, S1, S2 without murmur ABDOMEN: Soft, nontender, nondistended, normoactive bowel sounds, no guarding EXTREMITIES: 2+ pulses, warm, well-perfused, no edema. PSYCH: Continues to be alternating playful with some hyperactivity SKIN: Warm, dry, no rashes or lesions noted Laboratory Results - last 24 hr 04/21/18 08:30 ESR 6 Active Medications Generic Name Dose Route Start Last Admin Trade Name Freq PRN Reason Stop Dose Admin Acetaminophen 650 mg 04/19/18 21:10 04/21/18 09:40 Tylenol Oral Solution - PO 650 mg Q6H PRN Administration FEVER Diazepam 10 mg 04/19/18 22:00 04/21/18 09:34 Valium - PO 10 mg BID ENEIDA Administration Diphenhydramine HCl 25 mg 04/19/18 21:08 Benadryl Oral Solution - PO Q6H PRN AGITATION Heparin Sodium (Porcine) 5,000 unit 04/19/18 22:00 04/21/18 07:10 Heparin - SQ 5,000 unit TID E[facility] Administration Vancomycin HCl 1,000 mg/ 250 mls @ 166.667 mls/hr 04/20/18 08:00 04/21/18 12: 15 Dextrose IVPB 166.667 mls/hr Q12H [facility] Administration Protocol Piperacillin Sod/Tazobactam 100 mls @ 200 mls/hr 04/20/18 10:00 04/21/18 09: 33 Sod 4.5 gm/ Dextrose IVPB 200 mls/hr Q8H-IV [facility] Administration Protocol Sodium Chloride 1,000 mls @ 75 mls/hr 04/20/18 09:21 04/20/18 09:42 Normal Saline - IV 75 mls/hr ASDIR E[facility] Administration Levetiracetam 1,500 mg 04/20/18 22:00 04/21/18 09:33 Keppra - PO 1,500 mg BID ENEIDA Administration Melatonin 5 mg 04/19/18 22:00 04/20/18 21:15 Melatonin PO 5 mg HS [facility] Administration Oxcarbazepine 300 mg 04/19/18 22:00 04/21/18 09:34 Trileptal PO 300 mg BID ENEIDA Administration ASSESSMENT/PLAN: 1) SIRS 2/4 met --Temp 100.8 today --WBC downtrending --Cultures continue to be negative --ID on board --Discontinue ABX in lieu of no more episodes of fever throughout day and no seizures --Monitor off ABX and clear from ID standpoint if remains afebrile 2) Hematuria --Resolved --likely 2/2 to traumatic straight cath for urine samples --h/h stable 3) Seizure disorder --No seizures --Neuro on board: EEG pending --Continue Keppra 1500mg BID --Continue Oxcarbazepine 300mg BID --Continue Valium 10mg BID FEN: Fluids: Tolerating PO Electrolyte abnormalities: none Nutrition: Chopped PPX: DVT - Heparin Sq Dispo: monitor off abx and possible d/c tomorrow Case discussed with Dr. Hannah Garcia, DO - IM PGY-1 Visit type - Emergency Visit Emergency Visit: No - New Patient This patient is new to me today: Yes Date on this admission: 04/21/18 - Critical Care Critical Care patient: No
--- NOTE | 2018-04-21 13:39 | PN ---
Progress Note, Physician Chief Complaint: ID Alert NAD Active NO seizures and no fever today vancomycn and Zosyn - Current Medication List Current Medications: Active Medications Acetaminophen (Tylenol Oral Solution -) 650 mg PO Q6H PRN PRN Reason: FEVER Last Admin: 04/21/18 09:40 Dose: 650 mg Diazepam (Valium -) 10 mg PO BID [facility] Last Admin: 04/21/18 09:34 Dose: 10 mg Diphenhydramine HCl (Benadryl Oral Solution -) 25 mg PO Q6H PRN PRN Reason: AGITATION Heparin Sodium (Porcine) (Heparin -) 5,000 unit SQ TID [facility] Last Admin: 04/21/18 07:10 Dose: 5,000 unit Vancomycin HCl 1,000 mg/ (Dextrose) 250 mls @ 166.667 mls/hr IVPB Q12H [facility]; Protocol Last Admin: 04/21/18 12:15 Dose: 166.667 mls/hr Piperacillin Sod/Tazobactam (Sod 4.5 gm/ Dextrose) 100 mls @ 200 mls/hr IVPB Q8H-IV [facility]; Protocol Last Admin: 04/21/18 09:33 Dose: 200 mls/hr Sodium Chloride (Normal Saline -) 1,000 mls @ 75 mls/hr IV ASDIR [facility] Last Admin: 04/20/18 09:42 Dose: 75 mls/hr Levetiracetam (Keppra -) 1,500 mg PO BID [facility] Last Admin: 04/21/18 09:33 Dose: 1,500 mg Melatonin (Melatonin) 5 mg PO HS [facility] Last Admin: 04/20/18 21:15 Dose: 5 mg Oxcarbazepine (Trileptal) 300 mg PO BID [facility] Last Admin: 04/21/18 09:34 Dose: 300 mg - Objective Vital Signs: Vital Signs Temperature 100.8 F H 04/21/18 09:31 Pulse Rate 90 04/21/18 09:31 Respiratory Rate 20 04/21/18 09:31 Blood Pressure 86/50 04/21/18 09:31 O2 Sat by Pulse Oximetry (%) 100 04/21/18 09:00 Constitutional: Yes: Well Nourished, No Distress HENT: Yes: WNL, Atraumatic Neck: Yes: WNL, Supple Cardiovascular: Yes: Regular Rate and Rhythm, S1, S2. No: Murmur Respiratory: Yes: WNL, Regular, CTA Bilaterally Gastrointestinal: Yes: WNL, Normal Bowel Sounds, Soft. No: Tenderness, Tenderness, Rebound Edema: No Labs: CBC, BMP 04/20/18 07:00 04/20/18 07:00 INR, PTT INR 1.20 (0.82-1.09) H 04/20/18 07:00 Problem List - Problems (1) Fever, unknown origin Code(s): R50.9 - FEVER, UNSPECIFIED (2) Sepsis Code(s): A41.9 - SEPSIS, UNSPECIFIED ORGANISM Qualifiers: Sepsis type: sepsis due to unspecified organism Qualified Code(s): A41.9 - Sepsis, unspecified organism (3) Seizure Code(s): R56.9 - UNSPECIFIED CONVULSIONS Assessment/Plan Microbiology 04/19/18 16:00 Urine - Urine Clean Catch Urine Culture - Final NO GROWTH OBTAINED 04/19/18 16:48 Blood - Peripheral Venous Blood Culture - Preliminary NO GROWTH OBTAINED AFTER 24 HOURS, INCUBATION TO CONTINUE FOR 4 DAYS. 04/19/18 16:48 Blood - Peripheral Venous Blood Culture - Preliminary NO GROWTH OBTAINED AFTER 24 HOURS, INCUBATION TO CONTINUE FOR 4 DAYS. Laboratory Tests 04/19/18 04/20/18 04/20/18 16:00 07:00 07:00 WBC 6.2 D Hgb 14.9 Hct 46.4 Plt Count 165 D BUN 13 D Creat Clearance w eGFR > 60 Urine WBC (Auto) 4 Assessment Fever unclear source. Cultures no growth and no fever chest xray neg Plan Observe today off antibiotics discharge tomorrow if afebrile Alfa IZQUIERDO
--- NOTE | 2018-04-21 14:07 | PN ---
Progress Note (short form) - Note Progress Note: 23 year old male , history of cerebral palsy and seizure. Patient was admitted for infection and had status epilepticus and was started on keppra. his phenobarbital was stopped. Patient has a minor seizure in ed. Ct head is unremarkable. He is unable to provide any information. He is receiving antibiotic . No more seizure since last night Neurological Examination vital stable and afebril Alert and close eyes whenever I tried to examine his eye. THere is no verbal communication. he is moving all extremities withdraws to pain tracking objects in different direction There is no neck stiffness no face asymmetry CT HEAD unremarkable, eeg pending Assessment 23 year old male history of Developmental delay. He came with fever and breakthrough seizure. no more seizuure. = Plan- EEG pending Continue keppra 1500 mg po bid and trileptal - feel free to call me if you have any question Thanking you so much Derik Penn MD
[2018-04-21] MEDS: SODIUM CHLORIDE 1,000 ML IV SCH (14:27)
--- NOTE | 2018-04-21 17:47 | PN ---
Teaching Attending Note Name of Resident: Josse Garcia ATTENDING PHYSICIAN STATEMENT I saw and evaluated the patient. I reviewed the resident's note and discussed the case with the resident. I agree with the resident's findings and plan as documented. SUBJECTIVE: Patient appears comfortable laying in bed. OBJECTIVE: Vital Signs Period Temp Pulse Resp BP Sys/Holly Pulse Ox Last 24 Hr 98 F-100.8 F 79-90 20-20 86-131/50-94 97-100 GENERAL : Feels warm and diaphoretic HEART: S1S2, RRR LUNGS: Clear ABDOMEN: Soft, non-distended, normal BS EXTREMITIES: No edema Laboratory Results - last 24 hr 04/21/18 08:30 ESR 6 Current Medications Generic Name Dose Route Start Last Admin Trade Name Freq PRN Reason Stop Dose Admin Acetaminophen 650 mg 04/19/18 21:10 04/21/18 09:40 Tylenol Oral Solution - PO 650 mg Q6H PRN Administration FEVER Diazepam 10 mg 04/19/18 22:00 04/21/18 09:34 Valium - PO 10 mg BID [facility] Administration Diphenhydramine HCl 25 mg 04/19/18 21:08 Benadryl Oral Solution - PO Q6H PRN AGITATION Heparin Sodium (Porcine) 5,000 unit 04/19/18 22:00 04/21/18 14:26 Heparin - SQ 5,000 unit TID [facility] Administration Sodium Chloride 1,000 mls @ 75 mls/hr 04/20/18 09:21 04/21/18 14:27 Normal Saline - IV 75 mls/hr ASDIR [facility] Administration Levetiracetam 1,500 mg 04/20/18 22:00 04/21/18 09:33 Keppra - PO 1,500 mg BID [facility] Administration Melatonin 5 mg 04/19/18 22:00 04/20/18 21:15 Melatonin PO 5 mg HS [facility] Administration Oxcarbazepine 300 mg 04/19/18 22:00 04/21/18 09:34 Trileptal PO 300 mg BID [facility] Administration ASSESSMENT AND PLAN: This is a 23 year old man with a history of cerebral palsy, MR, seizures who presented to the ED from [facility] for fever. 1. SIRS - Had temp 100.8 today - WBC improved - Urine and blood cultures negative - Antibiotics discontinued - will monitor 2. Hematuria - Resolved - Likely secondary to trauma from straight cath 3. Dehydration - Improved with IV fluid 4. Cerebral Palsy 5. Developmental disability 6. Seizure disorder - No seziures noted - EEG pending - Continue Jerry Navas Valium
[2018-04-21] MEDS: MELATONIN 5 MG TABLETS PO SCH (22:16)
[2018-04-22] MEDS: HEPARIN NA (PORCINE) 5,000 UNITS/ML 1ML VIAL SQ SCH ×3 (05:49→23:46)
[2018-04-22 08:26] LABS: BASO % 0.6 % (0-2.0); EOS % 2.8 % (0-4.5); HEMATOCRIT 45.2 % (35.4-49); HEMOGLOBIN 14.5 GM/dL (11.7-16.9); LYMPH % 24.7 % (8-40); MCH 29.7 pg (25.7-33.7); MCHC 32.1 g/dl (32.0-35.9); MEAN CELL VOLUME 92.5 fl (80-96); MEAN PLT VOLUME 7.8 fl (7.5-11.1); MONO % 6.9 % (3.8-10.2); PLATELET COUNT 193 K/MM3 (134-434); RBC 4.88 M/mm3 (4.00-5.60); RDW 17.9 % (11.9-15.9); WHITE BLOOD COUNT 5.9 K/mm3 (4.0-10.0)
[2018-04-22] MEDS ORDERED: PT OWN MED DRAWER 7, Y5N ONE ×3 (10:07→20:01)
[2018-04-22] MEDS: levETIRAcetam 500 MG TABLET (FP) PO SCH ×2 (10:11→23:45)
[2018-04-22] MEDS: diazePAM 5 MG TABLET PO SCH ×2 (10:11→23:45)
[2018-04-22] MEDS: OXcarbazepine 300 MG/5 ML 250 ML BULK BOTTLE PO SCH ×2 (10:11→23:45)
[2018-04-22] MEDS: SODIUM CHLORIDE 1,000 ML IV SCH (13:46)
--- NOTE | 2018-04-22 15:50 | PN ---
Teaching Attending Note Name of Resident: Josse Garcia ATTENDING PHYSICIAN STATEMENT I saw and evaluated the patient. I reviewed the resident's note and discussed the case with the resident. I agree with the resident's findings and plan as documented. SUBJECTIVE: no events last night OBJECTIVE: NAD, eyes closed CV; RRR. Lungs: CTAB Ext: non pitting edema on feet ASSESSMENT AND PLAN: 23 y/o man with h/p MR and seizures who presented with fever and breakthrough seizures 1- Fever: unclear source. no recurrence off Abx. - monitor off Abx. - check US to R/o DVT 2- Seizures : cold be due to fever - EEG pending - cont keppra 100 bId . cont trilepta 3- No more fever, eating,. dc IVF DVT PX. possible dc tomorrow
--- NOTE | 2018-04-22 18:04 | PN ---
Progress Note (short form) - Note Progress Note: 23 year old male , history of cerebral palsy and seizure. Patient was admitted for infection and had status epilepticus and was started on keppra. his phenobarbital was stopped. Patient has a minor seizure in ed. Ct head is unremarkable. He is unable to provide any information. He is receiving antibiotic . Spoke to nurse, he has been afebrile and no seizure. eeg is pending Neurological Examination vital stable and afebrile Alert and close eyes whenever I tried to examine his eye. THere is no verbal communication. he is moving all extremities withdraws to pain tracking objects in different direction There is no neck stiffness no face asymmetry CT HEAD unremarkable, eeg pending Assessment 23 year old male history of Developmental delay. He came with fever and breakthrough seizure. Continue keppra 1500 mg po bid and trileptal - No need for further testing - agree with primary team to discharge him tomorrow. - feel free to call me if you have any question Thanking you so much Derik Penn MD
--- NOTE | 2018-04-22 23:14 | PN ---
Physical Exam: SUBJECTIVE: Afebrile overnight. No acute events to report. HPI limited due to medical limitations of pt. OBJECTIVE: Vital Signs Period Temp Pulse Resp BP Sys/Holly Pulse Ox Last 24 Hr 97.8 F-99.0 F 70-85 20-22 108-143/57-88 GENERAL: NAD, awake, alert, and sitting in bed with aid present HEENT: ALBA, moist mucosa LUNGS: CTA bilaterally with poor inspiratory effort, no wheezes, no crackles, no accessory muscle use. HEART: RRR, S1, S2 without murmur ABDOMEN: Soft, nontender, nondistended, normoactive bowel sounds, no guarding EXTREMITIES: 2+ pulses, warm, well-perfused, no edema. PSYCH: Continues to be alternating playful with some hyperactivity SKIN: Warm, dry, no rashes or lesions noted Laboratory Results - last 24 hr 04/20/18 04/22/18 07:00 07:35 WBC 5.9 RBC 4.88 Hgb 14.5 Hct 45.2 MCV 92.5 MCH 29.7 MCHC 32.1 RDW 17.9 H Plt Count 193 MPV 7.8 Neutrophils % 65.0 Lymphocytes % 24.7 Monocytes % 6.9 Eosinophils % 2.8 Basophils % 0.6 Nucleated RBC % 0 Levetiracetam 18.9 Active Medications Generic Name Dose Route Start Last Admin Trade Name Freq PRN Reason Stop Dose Admin Acetaminophen 650 mg 04/19/18 21:10 04/21/18 09:40 Tylenol Oral Solution - PO 650 mg Q6H PRN Administration FEVER Diazepam 10 mg 04/19/18 22:00 04/22/18 10:11 Valium - PO 10 mg BID [facility] Administration Diphenhydramine HCl 25 mg 04/19/18 21:08 04/21/18 22:16 Benadryl Oral Solution - PO 25 mg Q6H PRN Administration AGITATION Heparin Sodium (Porcine) 5,000 unit 04/19/18 22:00 04/22/18 13:52 Heparin - SQ 5,000 unit TID [facility] Administration Levetiracetam 1,500 mg 04/20/18 22:00 04/22/18 10:11 Keppra - PO 1,500 mg BID [facility] Administration Melatonin 5 mg 04/19/18 22:00 04/21/18 22:16 Melatonin PO 5 mg HS [facility] Administration Oxcarbazepine 300 mg 04/19/18 22:00 04/22/18 10:11 Trileptal PO 300 mg BID [facility] Administration ASSESSMENT/PLAN: 1) Fever of unknown etiology --Afebrile for 24hours at this point --No clear source of fever identified --Id on board --Monitoring off antibiotics --Duplex to r/o any thrombus causing previous fevers 2) Hematuria --Resolved --likely 2/2 to traumatic straight cath for urine samples --h/h stable 3) Seizure disorder --No seizures --Neuro on board: EEG pending --Continue Keppra 1500mg BID --Continue Oxcarbazepine 300mg BID --Continue Valium 10mg BID FEN: Fluids: Tolerating PO Electrolyte abnormalities: none Nutrition: Chopped PPX: DVT - Heparin Sq Dispo: D/C planning Case discussed with Dr. Vel Garcia, DO - IM PGY-1 Visit type - Emergency Visit Emergency Visit: No - New Patient This patient is new to me today: No - Critical Care Critical Care patient: No
[2018-04-22] MEDS: MELATONIN 5 MG TABLETS PO SCH (23:45)
[2018-04-23] MEDS: HEPARIN NA (PORCINE) 5,000 UNITS/ML 1ML VIAL SQ SCH ×2 (06:18→13:53)
[2018-04-23] MEDS: levETIRAcetam 500 MG TABLET (FP) PO SCH (11:11)
[2018-04-23] MEDS: diazePAM 5 MG TABLET PO SCH (11:12)
[2018-04-23] MEDS: OXcarbazepine 300 MG/5 ML 250 ML BULK BOTTLE PO SCH (11:13)
--- NOTE | 2018-04-23 12:08 | PN ---
Teaching Attending Note Name of Resident: Josse Garcia ATTENDING PHYSICIAN STATEMENT I saw and evaluated the patient. I reviewed the resident's note and discussed the case with the resident. I agree with the resident's findings and plan as documented. SUBJECTIVE: No events over night OBJECTIVE: NAD, awake , pleasant CV; RRR. Lungs: CTAB Ext: no edema on feet today ASSESSMENT AND PLAN: 23 y/o man with h/p MR and seizures who presented with fever and breakthrough seizures 1- Fever: unclear source. no recurrence off Abx. Us with no DVT as a source of his fever No need for Abx 2- Seizures : could be due to fever - EEG not done , but unlikely will changeover operator - cont keppra 1500 bId . cont trilepta pt is ready for dc to [facility]. can't reach Dr. Castellanos to accept. Will keep trying
--- NOTE | 2018-04-23 14:35 | DS ---
Physical Exam: SUBJECTIVE: Patient seen and examined OBJECTIVE: Vital Signs Period Temp Pulse Resp BP Sys/Holly Pulse Ox Last 24 Hr 98.1 F-98.8 F 60-80 16-20 119-135/74-77 PHYSICAL EXAM GENERAL: The patient is awake, alert, and fully oriented, in no acute distress. HEAD: Normal with no signs of trauma. EYES: PERRL, extraocular movements intact, sclera anicteric, conjunctiva clear. ENT: Ears normal, nares patent, oropharynx clear without exudates, moist mucous membranes. NECK: Trachea midline, full range of motion, supple. LUNGS: Breath sounds equal, clear to auscultation bilaterally, no wheezes, no crackles, no accessory muscle use. HEART: Regular rate and rhythm, S1, S2 without murmur, rub or gallop. ABDOMEN: Soft, nontender, nondistended, normoactive bowel sounds, no guarding, no rebound, no hepatosplenomegaly, no masses. EXTREMITIES: 2+ pulses, warm, well-perfused, no edema. NEUROLOGICAL: Cranial nerves II through XII grossly intact. Normal speech, gait not observed. PSYCH: Normal mood, normal affect. SKIN: Warm, dry, normal turgor, no rashes or lesions noted. LABS HOSPITAL COURSE: Date of Admission:04/19/18 Date of Discharge: 04/23/18 Discharge Summary Reason For Visit: FEVER OF UNKNOWN ORIGIN, SEPSIS Current Active Problems Fever, unknown origin (Acute) Sepsis (Acute) Seizure (Chronic) Condition: Improved - Instructions Diet, Activity, Other Instructions: Mr. Vieyra was seen here for his fevers. We ruled out infectious sources including, but not limited to chest, abdomen, urine, and possible DVT. His fevers subsided by themselves and have not occurred within the past 48hours. His blood and urine cultures have remained without any growth throughout his hospital stay. MEDICATIONS: Please continue Keppra 1500mg BID. He has not had a breakthrough seizure on this regiment so far and has been evaluated by our neurologist here. Please continue his Oxcarbazepine 300mg BID and Valium 10mg BID as well. Please continue the rest of his medical regiment as he has been. FOLLOW-UP: Please follow-up with Dr. Castellanos at [place] Please follow-up with his regularly scheduled neurologist appointments If pt continues to have high fevers >101 degrees F and/or altered mental status , please return to the emergency room for further workup and possibly rheumatological diseases. Referrals: radha castellanos [Other] Disposition: [facility] - Home Medications Comprehensive Discharge Medication List: Ambulatory Orders Diazepam 10 mg PO BID 04/19/18 Diphenhydramine [Benadryl 12.5 MG/5 ML Oral Solution -] 25 mg PO Q6H PRN Melatonin 5 mg PO HS 04/19/18 Oxcarbazepine [Trileptal Susp 300 mg/5 mL -] 300 mg PO BID 04/19/18 levETIRAcetam [Keppra Oral Solution -] 1,500 mg PO BID 04/19/18 - Discharge Referral Referred to [facility] Med P.C.: No
[2018-04-23 16:24] VITALS: BP 113/60; PULSE 107; TEMP 98.7
== END 2018-04-23 17:59 | DRG 720 ==
LOC: JER 14:22 → JERBED 19:31 → J8W 21:42
PROVIDERS: ADMIT Internal Medicine; ATTEND Internal Medicine
DX: A41.9 Sepsis, unspecified organism (principal); N17.9 Acute kidney failure, unspecified; D75.1 Secondary polycythemia; R56.00 Simple febrile convulsions; F79 Unspecified intellectual disabilities; G80.9 Cerebral palsy, unspecified; T83.091A Other mechanical complication of indwelling urethral catheter, initial encounter; Y84.6 Urinary catheterization as the cause of abnormal reaction of the patient, or of later complication, without mention of misadventure at the time of the procedure; R31.9 Hematuria, unspecified; E86.0 Dehydration; D72.829 Elevated white blood cell count, unspecified
CPT/HCPCS: 36415; 70450-TC; 71045-TC-FY; 80053; 81003; 81015; 82803; 83605; 84484; 85025; 85610; 85651; 85730; 86140; 87040; 87086; 93005; 93010; 93970-TC; 95816; 99284-25; J1644; J7030

== ENCOUNTER 2019-06-12 04:00 | Emergency (ER) | payer OTHER ==
[2019-06-12 04:10] VITALS: BP 124/76; PULSE 89; BMI 22.8
[2019-06-12] MEDS ORDERED: DEXTROSE 50%-WATER - 25 GM/50 ML VIAL IVPUSH ONE (04:18)
--- NOTE | 2019-06-12 04:22 | PDOC ---
Attending Attestation - Resident Resident Name: BenyMargaret - ED Attending Attestation I have performed the following: I have examined & evaluated the patient, The case was reviewed & discussed with the resident, I agree w/resident's findings & plan - HPI HPI: 06/12/19 04:37 Pt came with seizure activity at the nursing home. - Physicial Exam PE: 06/12/19 05:32 Pt has some fungal infection on his face. - Medical Decision Making 06/12/19 05:34 Pt comes with seizure. Labs normal. Head CT normal; exam normal. Stable to go back to the ID.
--- NOTE | 2019-06-12 04:25 | PDOC ---
History of Present Illness - General Chief Complaint: Seizure Stated Complaint: SEIZURES Time Seen by Provider: 06/12/19 04:01 History Source: Care Provider, EMS, Residential Records Exam Limitations: Physical Impairment - History of Present Illness Initial Comments: 06/12/19 04:16 24YOM with h/o seizure disorder, CP, and profound developmental delay who was BIBEMS from [facility] where he was found by staff to be having difficulty breathing at about 3:30 am today. EMS arrived on scene to find him shaking, which [facility] staff noted is typical of his normal seizures. EMS gave 5 mg diazepam IM and the shaking resolved shortly thereafter. However, the caregiver notes, the patient has not returned to his normal responsive baseline. EMS notes the patient's blood sugar was 76 and he was initially tachycardic to the 110s-120s and BP was in the 140s. Paper record from [facility] state the patient had heavy breathing and was not responding when they found him, and reports that they placed him on 8 LPM O2 and measure VS to be O2 96%, HR 74, BP 203/57. Past History - Past Medical History Allergies/Adverse Reactions: Allergies Allergy/AdvReac Type Severity Reaction Status Date / Time No Known Allergies Allergy Verified 06/12/19 04:10 Home Medications: Ambulatory Orders Diazepam 10 mg PO BID 04/19/18 Diphenhydramine [Benadryl 12.5 MG/5 ML Oral Solution -] 25 mg PO Q6H PRN Melatonin 5 mg PO HS 04/19/18 Oxcarbazepine [Trileptal Susp 300 mg/5 mL -] 300 mg PO BID 04/19/18 levETIRAcetam [Keppra Oral Solution -] 1,500 mg PO BID 04/19/18 Terbinafine HCl [Terbinafine] 30 gm TP BID #30 cream..g. 06/12/19 Seizures: Yes - Suicide/Smoking/Psychosocial Hx Smoking History: Unknown if ever smoked Have you smoked in the past 12 months: No Hx Alcohol Use: No Drug/Substance Use Hx: No Substance Use Type: None Hx Substance Use Treatment: No Review of Systems - Review of Systems Able to Perform ROS?: No (nonverbal) *Physical Exam - Vital Signs Last Vital Signs Temp Pulse Resp BP Pulse Ox 89 18 124/76 100 06/12/19 04:03 06/12/19 04:03 06/12/19 04:03 06/12/19 04:03 - Physical Exam Comments: 06/12/19 04:25 GENERAL: obtunded, unable to answer questions, no response to verbal stimuli, withdraws from pain, eyes are open spontaneously, no verbalizations HEENT: moist mucous membranes NECK/BACK: no spinal stepoff or deformity, no hematoma, neck supple CARDIOVASCULAR: regular rate/rhythm, normal S1S2, no MGR, capillary refill <2 seconds, extremities wwp, no edema LUNGS/RESPIRATORY: nononlabored respirations, lungs CTAB GI/ABDOMEN: symmetric [id number], normoactive BS, soft, no midline pulsatile masses, no organomegaly : normal external appearance, no lesions, no swelling, non-malodorous EXTREMITIES: no muscle atrophy, no acute deformity, no edema SKIN: warm and dry, no pallor, no jaundice, no rash, no bruising NEUROLOGICAL: no obvious facial droop, moving all extremities, contracted, otherwise patient is unable to participate in exam Heart Score/ECG Review #1 06/12/19 04:05 NSR, rate 95, normal axis and intervals, MARTÍN, no ST-T changes ED Treatment Course - LABORATORY CBC & Chemistry Diagram: 06/12/19 04:31 06/12/19 04:31 Medical Decision Making - Medical Decision Making 06/12/19 05:36 24YOM with known seizure disorder, CP, and severe DD p/w reported seizure and low blood sugar. Initial Vital Signs Temp Pulse Resp BP Pulse Ox 98.3 F 89 18 124/76 100 06/12/19 04:03 06/12/19 04:03 06/12/19 04:03 06/12/19 04:03 06/12/19 04:03 Exam: As noted in Physical Exam section. DDX IBNLT: seizure is most likely by syncope is considered. Seizure most likely precipitated by hypoglycemia, less likely CVA/TIA, infectious, trauma, toxic- metabolic, new brain lesion, etc. W/U ordered: Labs as noted below, EKG Head CT FSBG is 61 and 1 amp D50 is given. EKG: Reviewed; results as noted in ECG Review section. Laboratory Tests 06/12/19 06/12/19 06/12/19 04:31 04:31 04:47 WBC 6.3 RBC 5.62 H Hgb 16.5 Hct 51.2 H MCV 91.1 MCH 29.4 MCHC 32.2 RDW 15.8 D Plt Count 192 MPV 8.3 Absolute Neuts (auto) 3.9 Neutrophils % 62.7 Lymphocytes % 24.9 Monocytes % 6.0 Eosinophils % 5.6 H D Basophils % 0.8 Nucleated RBC % 0 Sodium 141 Potassium 4.4 Chloride 109 H Carbon Dioxide 27 Anion Gap 5 L BUN 12.3 Creatinine 1.2 Est GFR (CKD-EPI)AfAm 96.15 Est GFR (CKD-EPI)NonAf 82.96 POC Glucometer 61 Random Glucose 82 Calcium 8.3 L Total Bilirubin 0.2 AST 17 ALT 31 Alkaline Phosphatase 89 Total Protein 6.[address]: Nothing acute Reassessment: Patient appears much improved, sitting up in bed, caregiver states acting per baseline. 06/12/19 05:39 This patient has gotten significant relief of symptoms while in the ED. On last reassessment, vitals are wnl, and exam is benign. Workup is not concerning for emergency-level pathology at this time. This patient is appropriate for discharge with close outpatient follow up. The caregiver is comfortable with this plan and will follow up with their outpatient doctor in 1-3 days. They agree to return to the ED with any new/worsening symptoms. Specific return precautions are discussed and they will come back to the ER if necessary. *DC/Admit/Observation/Transfer Diagnosis at time of Disposition: Seizure - Discharge Dispostion Disposition: ALF FACILITY Condition at time of disposition: Stable Decision to Admit order: No - Prescriptions Prescriptions: Terbinafine HCl [Terbinafine] 30 gm TP BID #30 cream..g. - Referrals Referrals: ON STAFF,NOT [Non Staff, Medical] - - Patient Instructions Additional Instructions: Nilay was seen in the ER for a seizure. We did an exam, imaging studies, an electrocardiogram, and laboratory work, and we did not find any new concerning abnormalities. His blood sugar was a bit low and we gave him IV sugar solution. After our assessment, we do not believe he is having a medical emergency at this time, and we believe you are safe to go back to [facility]. Please continue to give the seizure medications as prescribed. Avoid triggers that may cause or worsen the seizures such as dehydration, fasting, low blood sugar, lack of sleep , or intensely stressful situations. Please follow up with your regular PCP doctor, neurologist, or the doctor who follows you for your seizure disorder, in 1-3 days. If you have any new or worsening symptoms, please come back to the ER at any time (24 hours a day). - Post Discharge Activity
[2019-06-12 04:43] LABS: BASO % 0.8 % (0-2.0); EOS % 5.6 % (0-4.5); HEMATOCRIT 51.2 % (35.4-49); HEMOGLOBIN 16.5 GM/dL (11.7-16.9); LYMPH % 24.9 % (8-40); MCH 29.4 pg (25.7-33.7); MCHC 32.2 g/dl (32.0-35.9); MEAN CELL VOLUME 91.1 fl (80-96); MEAN PLT VOLUME 8.3 fl (7.5-11.1); NEUT % 62.7 % (42.8-82.8); PLATELET COUNT 192 K/MM3 (134-434); RBC 5.62 M/mm3 (4.00-5.60); RDW 15.8 % (11.9-15.9); WHITE BLOOD COUNT 6.3 K/mm3 (4.0-10.0)
[2019-06-12] MEDS ORDERED: DEXTROSE 50%-WATER 25 GM/50 ML DISP.SYRIN ONE (04:48)
[2019-06-12 05:05] LABS: ALBUMIN 3.6 g/dl (3.4-5.0); BILIRUBIN,TOTAL 0.2 mg/dL (0.2-1); BLOOD UREA NITROGEN 12.3 mg/dL (7-18); CALCIUM 8.3 mg/dL (8.5-10.1); CREATININE 1.2 mg/dL (0.55-1.3); POTASSIUM 4.4 mmol/L (3.5-5.1); TOT PROT 6.6 g/dl (6.4-8.2)
[2019-06-12 05:32] VITALS: TEMP 98.3
--- NOTE | 2019-06-13 00:01 | EKG ---
Test Reason : Blood Pressure : / mmHG Vent. Rate : 095 BPM Atrial Rate : 095 BPM P-R Int : 172 ms QRS Dur : 088 ms QT Int : 344 ms P-R-T Axes : 082 084 058 degrees QTc Int : 432 ms NORMAL SINUS RHYTHM RIGHT ATRIAL ENLARGEMENT NONSPECIFIC T WAVE ABNORMALITY ABNORMAL ECG WHEN COMPARED WITH ECG OF 19-APR-2018 15:51, NONSPECIFIC T WAVE ABNORMALITY NO LONGER EVIDENT IN ANTERIOR LEADS QT HAS LENGTHENED Confirmed by AI LEHMAN MD ([id number]) on 06/13/2019 12:01:13 AM Referred By: Confirmed By:AI LEHMAN MD
== END 2019-06-12 05:57 ==
LOC: JER 04:00
PROC: 3E033GC Introduction of Other Therapeutic Substance into Peripheral Vein, Percutaneous Approach (ICD-10-PCS; principal; 2019-06-12)
DX: R56.9 Unspecified convulsions (principal); G80.9 Cerebral palsy, unspecified
CPT/HCPCS: 36415; 70450-TC; 80053; 80177; 80184; 82962; 85025; 93005; 93010; 96374; 99283-25

== ENCOUNTER 2019-07-22 05:18 | Emergency (ER) | payer OTHER ==
[2019-07-22 05:41] VITALS: BMI 22.3
--- NOTE | 2019-07-22 06:11 | PDOC ---
Attending Attestation - Resident Resident Name: Juan F Crooks - HPI HPI: 07/22/19 06:03 24m hx CP , severe developmental delay, seizure disorder presents after questionable seizure activity at intermediate. Per aide the activity more resembled 'shivering' than a true seizure, however intermediate staff insisted on sending the patient per their protocol. Aide states patient has been acting per his baseline, with no f/n/v cough. Takes trileptal and keppra for seizures. - Physicial Exam PE: 07/22/19 06:11 supine in stretcher eyes closed but moaning intermittently mmm moving all extremities withdraws to painful stimuli - Medical Decision Making 07/22/19 06:12 Questionable seizure activity stable vitals labs CBC chem20 keppra level observe if well appearing , no further seizures, and normal workup can consider outpt f/ u
[2019-07-22 06:15] LABS: BASO % 1.2 % (0-2.0); EOS % 4.8 % (0-4.5); HEMATOCRIT 53.5 % (35.4-49); HEMOGLOBIN 17.7 GM/dL (11.7-16.9); LYMPH % 16.3 % (8-40); MCH 30.2 pg (25.7-33.7); MCHC 33.1 g/dl (32.0-35.9); MEAN CELL VOLUME 91.2 fl (80-96); MONO % 6.1 % (3.8-10.2); NEUT % 71.6 % (42.8-82.8); PLATELET COUNT 193 K/MM3 (134-434); RBC 5.87 M/mm3 (4.00-5.60); RDW 16.4 % (11.9-15.9)
--- NOTE | 2019-07-22 06:32 | PDOC ---
History of Present Illness - General Chief Complaint: Seizure Stated Complaint: SEIZURE Time Seen by Provider: 07/22/19 05:25 - History of Present Illness Initial Comments: Mr. Vieyra is a 24 y/o male with hx of cerebral palsy, developmental delay, non -verbal, epilepsy, brought in from [facility] for possible witnessed seizure. He was found to be shaking earlier this evening. Aide at bedside thought he was shivering due to an open window, but nurse wanted him evaluated per protocol. Shaking movements lasted for around 5 minutes. Unsure if eyes rolled back. Patient is incontinent to urine at baseline. Patient was not making verbal sounds during the shaking. No fever, no recent illness. PMH: trileptal, keppra, ativan Past History - Past Medical History Allergies/Adverse Reactions: Allergies Allergy/AdvReac Type Severity Reaction Status Date / Time No Known Allergies Allergy Verified 07/22/19 05:41 Home Medications: Ambulatory Orders Diazepam 10 mg PO BID 04/19/18 Diphenhydramine [Benadryl 12.5 MG/5 ML Oral Solution -] 25 mg PO Q6H PRN Melatonin 5 mg PO HS 04/19/18 Oxcarbazepine [Trileptal Susp 300 mg/5 mL -] 300 mg PO BID 04/19/18 levETIRAcetam [Keppra Oral Solution -] 1,500 mg PO BID 04/19/18 Terbinafine HCl [Terbinafine] 30 gm TP BID #30 cream..g. 06/12/19 COPD: No Seizures: Yes Other medical history: epilepsy , cerebral palsy, profound intellectual - Immunization History Immunization Up to Date: Yes - Suicide/Smoking/Psychosocial Hx Smoking History: Unknown if ever smoked Have you smoked in the past 12 months: No Information on smoking cessation initiated: No Hx Alcohol Use: No Drug/Substance Use Hx: No Substance Use Type: None Hx Substance Use Treatment: No Review of Systems - Review of Systems Able to Perform ROS?: No (patient is nonverbal ) *Physical Exam - Vital Signs Last Vital Signs Temp Pulse Resp BP Pulse Ox 98.3 F 86 20 151/90 99 07/22/19 05:34 07/22/19 05:34 07/22/19 05:34 07/22/19 05:34 07/22/19 05:43 - Physical Exam Comments: Exam limited 2/2 nonverbal patient with limited cooperation. GENERAL: Awake, alert, in no acute distress_ HEAD: No signs of trauma, normocephalic, atraumatic _ ENT: nares patent, oropharynx clear without exudates. No tongue lacerations. NECK: Normal ROM, no lymphadenopathy, JVD, or masses_ LUNGS: No distress, clear to auscultation bilaterally _ HEART: Regular rate and rhythm, normal S1 and S2, no murmurs appreciated, peripheral pulses normal and equal bilaterally._ ABDOMEN: Soft, nontender, normoactive bowel sounds. No guarding, no rebound. No masses_ EXTREMITIES: Normal inspection, Contracted bilaterally, no edema. No clubbing or cyanosis_ NEUROLOGICAL: Cranial nerves II through XII grossly intact. SKIN: Warm, Dry, normal turgor, no rashes or lesions noted_ ED Treatment Course - LABORATORY CBC & Chemistry Diagram: 07/22/19 06:00 07/22/19 08:05 Medical Decision Making - Medical Decision Making 24M with cerebral palsy, developmental delay, nonverbal, epilepsy, presenting with possible seizure vs shivering from the cold. No tongue lacerations. Took AED meds today. Incontinent to urine at baseline. Plan: CBC, CMP, keppra and trileptal levels. 07/22/19 0700 Pt signed out to Dr. Ayala. *DC/Admit/Observation/Transfer Diagnosis at time of Disposition: Tremulousness - Discharge Dispostion Disposition: HOME Condition at time of disposition: Improved - Referrals - Patient Instructions Printed Discharge Instructions: DI for Psychogenic Nonepileptic Seizures Additional Instructions: Come back to the emergency department for any new, worsening or concerning symptoms. Follow up with your primary care provider within a week. - Post Discharge Activity
[2019-07-22 07:34] VITALS: TEMP 99.2
[2019-07-22 08:53] LABS: ALBUMIN 3.9 g/dl (3.4-5.0); BILIRUBIN,TOTAL 0.4 mg/dL (0.2-1); BLOOD UREA NITROGEN 14.5 mg/dL (7-18); CALCIUM 9.3 mg/dL (8.5-10.1); CREATININE 1.3 mg/dL (0.55-1.3); POTASSIUM 4.5 mmol/L (3.5-5.1)
--- NOTE | 2019-07-22 09:20 | PDOC ---
*Physical Exam - Vital Signs Last Vital Signs Temp Pulse Resp BP Pulse Ox 99.2 F 86 20 151/90 99 07/22/19 07:20 07/22/19 05:34 07/22/19 05:34 07/22/19 05:34 07/22/19 05:43 ED Treatment Course - LABORATORY CBC & Chemistry Diagram: 07/22/19 06:00 07/22/19 08:05 - ADDITIONAL ORDERS Additional order review: Laboratory Results 07/22/19 07/22/19 07/22/19 08:05 06:42 06:00 Sodium 142 Cancelled Potassium 4.5 Cancelled Chloride 106 Cancelled Carbon Dioxide 31 Cancelled Anion Gap 4 L Cancelled BUN 14.5 Cancelled Creatinine 1.3 Cancelled Est GFR (CKD-EPI)AfAm 87.28 Cancelled Est GFR (CKD-EPI)NonAf 75.30 Cancelled POC Glucometer 78 Random Glucose 78 Cancelled Calcium 9.3 Cancelled Total Bilirubin 0.4 Cancelled AST 33 Cancelled ALT 31 Cancelled Alkaline Phosphatase 89 Cancelled Total Protein 7.0 Cancelled Albumin 3.9 Cancelled 07/22/19 07/22/19 06:42 06:00 RBC 5.87 H MCV 91.2 MCHC 33.1 RDW 16.4 H MPV 8.0 Neutrophils % 71.6 Lymphocytes % 16.3 D Monocytes % 6.1 Eosinophils % 4.8 H Basophils % 1.2 POC Glucometer 78 Medical Decision Making - Medical Decision Making 07/22/19 09:19 Normal labs. patient ok to go back to [facility] *DC/Admit/Observation/Transfer Diagnosis at time of Disposition: Tremulousness - Discharge Dispostion Disposition: HOME Condition at time of disposition: Improved Decision to Admit order: No - Referrals - Patient Instructions Printed Discharge Instructions: DI for Psychogenic Nonepileptic Seizures Additional Instructions: Come back to the emergency department for any new, worsening or concerning symptoms. Follow up with your primary care provider within a week. - Post Discharge Activity
[2019-07-22 09:48] VITALS: BP 117/80; PULSE 70
== END 2019-07-22 11:24 | disposition home or self-care (01) ==
LOC: JER 05:18
DX: R25.1 Tremor, unspecified (principal); G40.909 Epilepsy, unspecified, not intractable, without status epilepticus; G80.8 Other cerebral palsy; F73 Profound intellectual disabilities; R62.50 Unspecified lack of expected normal physiological development in childhood
CPT/HCPCS: 36415; 80053; 80177; 80183; 82962; 85025; 99284-25

== ENCOUNTER 2020-12-01 13:07 | Observation (INO) | payer OTHER ==
[2020-12-01 13:26] VITALS: BMI 20.3
[2020-12-01] MEDS ORDERED: ACETAMINOPHEN 1000 MG/100 ML BAG IVPB ONE (14:43)
[2020-12-01] MEDS ORDERED: SODIUM CHLORIDE 500 ML IV SCH (14:45)
[2020-12-01] MEDS ORDERED: LACTATED RINGERS SOLUTION 1000 ML INFUS.BAG IV ONE (15:21)
[2020-12-01] MEDS ORDERED: PIPERACILLIN/TAZOB 3.375 GM 3.375 GM in DEXTROSE 5%-WATER - 50 ML IVPB ONE (16:29)
[2020-12-01] MEDS ORDERED: VANCOMYCIN 1,000 MG in DEXTROSE 5%-WATER - 250 ML IVPB ONE (16:29)
[2020-12-01] MEDS ORDERED: PIPERACILLIN/TAZOB 3.375 GM 3.375 GM/50 ML BAG IVPB ONE (16:32)
[2020-12-01] MEDS ORDERED: ACETAMINOPHEN INJECTION 100 ML IVPB ONE (16:49)
[2020-12-01 16:52] LABS: CALCIUM 9.2 mg/dL (8.5-10.1)
[2020-12-01 16:53] LABS: ALBUMIN 4.1 g/dl (3.4-5.0); BLOOD UREA NITROGEN 14.3 mg/dL (7-18)
[2020-12-01 16:56] LABS: CREATININE 1.6 mg/dL (0.55-1.3)
[2020-12-01 16:57] LABS: BILIRUBIN,TOTAL 0.4 mg/dL (0.2-1); EOS % 0.1 % (0-4.5); HEMATOCRIT 52.4 % (35.4-49); HEMOGLOBIN 16.5 GM/dL (11.7-16.9); LYMPH % 10.3 % (8-40); MCH 29.2 pg (25.7-33.7); MCHC 31.5 g/dl (32.0-35.9); MEAN CELL VOLUME 92.6 fl (80-96); MEAN PLT VOLUME 8.2 fl (7.5-11.1); MONO % 5.4 % (3.8-10.2); NEUT % 83.2 % (42.8-82.8); PLATELET COUNT 190 K/MM3 (134-434); RBC 5.65 M/mm3 (4.00-5.60); RDW 16.2 % (11.9-15.9); TOT PROT 7.1 g/dl (6.4-8.2); WHITE BLOOD COUNT 13.8 K/mm3 (4.0-10.0)
[2020-12-01 16:58] LABS: INR 1.13 (0.83-1.09); PROTHROMBIN TIME (PATIENT) 13.9 SEC (9.7-13.0)
[2020-12-01 17:00] LABS: ACTIVATED PTT 35.6 SECONDS (25.2-36.5)
[2020-12-01 17:21] LABS: EPI CELLS >36 /uL (0-25.1); HYALINE CASTS 3 /uL (0-3.1); URINE APPEARANCE CLOUDY; URINE BACTERIA 26 /uL (0-1359); URINE BILIRUBIN NEGATIVE (NEGATIVE); URINE COLOR YELLOW; URINE GLUCOSE (UA) NEGATIVE (NEGATIVE); URINE KETONE TRACE (NEGATIVE); URINE LEUK ESTERASE NEGATIVE (NEGATIVE); URINE NITRITE NEGATIVE (NEGATIVE); URINE PROTEIN 1+ (NEGATIVE); URINE RBC 169 /uL (0-23.9); URINE WBC 11 /uL (0-25.8)
[2020-12-01 17:25] LABS: LDH 255 U/L (87-246)
[2020-12-01] MEDS ORDERED: VANCOMYCIN 1 GRAM (PRE-DOCKED) 1,000 MG/250 ML BAG IVPB ONE (18:14)
[2020-12-01] MEDS ORDERED: ACETAMINOPHEN 325 MG TABLET (FP) PO PRN (20:11)
[2020-12-01] MEDS: SODIUM CHLORIDE 1,000 ML IV SCH (20:20)
[2020-12-01 22:44] LABS: MAGNESIUM 1.9 mg/dL (1.8-2.4)
[2020-12-01 22:48] LABS: PHOSPHOROUS 2.2 mg/dL (2.5-4.9)
[2020-12-01] MEDS: HEPARIN NA (PORCINE) 5,000 UNITS/ML 1ML VIAL SQ SCH (22:53)
[2020-12-01] MEDS ORDERED: HEPARIN NA (PORCINE) 5,000 UNITS/ML 1ML VIAL ONE (22:55)
[2020-12-01] MEDS ORDERED: LORazepam 2 MG/ML SDV VIAL IVPUSH ONE (23:30)
[2020-12-01] MEDS ORDERED: levETIRAcetam 500 MG/5 ML INJECTION VIAL IVPB ONE ×2 (23:30→23:36)
[2020-12-02] MEDS ORDERED: PIPERACILLIN/TAZOB 3.375 GM 3.375 GM in DEXTROSE 5%-WATER - 50 ML IVPB ONE (00:01)
[2020-12-02] MEDS ORDERED: PIPERACILLIN/TAZOB 3.375 GM 3.375 GM/50 ML BAG IVPB ONE ×3 (00:30→18:54)
[2020-12-02] MEDS ORDERED: HEPARIN NA (PORCINE) 5,000 UNITS/ML 1ML VIAL ONE ×3 (06:00→22:03)
[2020-12-02] MEDS: HEPARIN NA (PORCINE) 5,000 UNITS/ML 1ML VIAL SQ SCH ×3 (06:05→22:50)
[2020-12-02] MEDS: OXcarbazepine 300 MG/5 ML 250 ML BULK BOTTLE PO SCH ×3 (06:14→22:42)
[2020-12-02] MEDS: diazePAM 5 MG TABLET PO SCH (07:42)
[2020-12-02] MEDS ORDERED: diazePAM 5 MG TABLET ONE ×2 (07:44→22:03)
[2020-12-02] MEDS ORDERED: VANCOMYCIN 1 GRAM (PRE-DOCKED) 1,000 MG/250 ML BAG IVPB ONE ×2 (09:00→10:00)
[2020-12-02] MEDS: levETIRAcetam 500 MG/5 ML ORAL SOLUTION (UNIT-DOSE CUPS) PO SCH ×2 (09:43→22:41)
[2020-12-02] MEDS ORDERED: PIPERACILLIN/TAZOB 3.375 GM 3.375 GM in DEXTROSE 5%-WATER - 50 ML IVPB SCH (10:00)
[2020-12-02] MEDS ORDERED: VANCOMYCIN 1 GM in D5W (PRE-DOCKED) 1,000 MG/250 ML IVPB SCH (10:00)
[2020-12-02 11:43] LABS: BASO % 0.4 % (0-2.0); HEMATOCRIT 49.8 % (35.4-49); HEMOGLOBIN 16.1 GM/dL (11.7-16.9); LYMPH % 32.4 % (8-40); MCHC 32.4 g/dl (32.0-35.9); MEAN CELL VOLUME 92.7 fl (80-96); MEAN PLT VOLUME 7.8 fl (7.5-11.1); MONO % 6.1 % (3.8-10.2); NEUT % 60.1 % (42.8-82.8); PLATELET COUNT 155 K/MM3 (134-434); RBC 5.37 M/mm3 (4.00-5.60); RDW 15.9 % (11.9-15.9); WHITE BLOOD COUNT 6.8 K/mm3 (4.0-10.0)
[2020-12-02 12:01] LABS: ALBUMIN 3.9 g/dl (3.4-5.0); CALCIUM 8.5 mg/dL (8.5-10.1)
[2020-12-02 12:02] LABS: MAGNESIUM 2.2 mg/dL (1.8-2.4)
[2020-12-02 12:05] LABS: CREATININE 1.2 mg/dL (0.55-1.3); PHOSPHOROUS 2.5 mg/dL (2.5-4.9)
[2020-12-02 12:06] LABS: BILIRUBIN,TOTAL 0.7 mg/dL (0.2-1); TOT PROT 6.7 g/dl (6.4-8.2)
[2020-12-02] MEDS: PIPERACILLIN/TAZOB 3.375 GM 3.375 GM in DEXTROSE 5%-WATER - 50 ML IVPB SCH (18:54)
[2020-12-02] MEDS ORDERED: diazePAM 5 MG TABLET PO SCH (22:00)
[2020-12-02] MEDS ORDERED: MELATONIN 5 MG TABLETS PO SCH (22:00)
[2020-12-02] MEDS ORDERED: MELATONIN 5 MG TABLETS ONE (22:03)
[2020-12-02] MEDS: SODIUM CHLORIDE 1,000 ML IV SCH (22:50)
[2020-12-03] MEDS: PIPERACILLIN/TAZOB 3.375 GM 3.375 GM in DEXTROSE 5%-WATER - 50 ML IVPB SCH ×2 (06:09→09:37)
[2020-12-03] MEDS ORDERED: diazePAM 5 MG TABLET ONE (09:13)
[2020-12-03] MEDS ORDERED: HEPARIN NA (PORCINE) 5,000 UNITS/ML 1ML VIAL ONE (09:14)
[2020-12-03] MEDS ORDERED: PT OWN MED DRAWER 7, Y5N ONE (09:14)
[2020-12-03] MEDS ORDERED: PIPERACILLIN/TAZOB 3.375 GM 3.375 GM/50 ML BAG IVPB ONE (09:15)
[2020-12-03] MEDS: diazePAM 5 MG TABLET PO SCH (09:37)
[2020-12-03] MEDS: levETIRAcetam 500 MG/5 ML ORAL SOLUTION (UNIT-DOSE CUPS) PO SCH (09:37)
[2020-12-03] MEDS: OXcarbazepine 300 MG/5 ML 250 ML BULK BOTTLE PO SCH ×2 (09:37→14:26)
[2020-12-03] MEDS: HEPARIN NA (PORCINE) 5,000 UNITS/ML 1ML VIAL SQ SCH ×2 (09:37→14:26)
[2020-12-03 15:15] VITALS: BP 135/75; PULSE 68; TEMP 98
== END 2020-12-03 16:00 | disposition home or self-care (01) ==
LOC: JER 13:07 → UNDOADMOB 18:33 → JERBED 18:33
PROVIDERS: ADMIT Hospitalist; ATTEND Internal Medicine
PROC: 3E023GC Introduction of Other Therapeutic Substance into Muscle, Percutaneous Approach (ICD-10-PCS; principal; 2020-12-01)
PROC: 3E033GC Introduction of Other Therapeutic Substance into Peripheral Vein, Percutaneous Approach (ICD-10-PCS; 2020-12-01)
PROC: 3E03329 Introduction of Other Anti-infective into Peripheral Vein, Percutaneous Approach (ICD-10-PCS; 2020-12-01)
PROC: 3E0337Z Introduction of Electrolytic and Water Balance Substance into Peripheral Vein, Percutaneous Approach (ICD-10-PCS; 2020-12-01)
PROC: 3E033NZ Introduction of Analgesics, Hypnotics, Sedatives into Peripheral Vein, Percutaneous Approach (ICD-10-PCS; 2020-12-01)
DX: G80.9 Cerebral palsy, unspecified (principal); G40.909 Epilepsy, unspecified, not intractable, without status epilepticus; Z87.440 Personal history of urinary (tract) infections; R50.9 Fever, unspecified; N39.0 Urinary tract infection, site not specified; R00.0 Tachycardia, unspecified; D72.829 Elevated white blood cell count, unspecified; R79.89 Other specified abnormal findings of blood chemistry; A41.89 Other specified sepsis; R45.1 Restlessness and agitation; Z29.9 Encounter for prophylactic measures, unspecified; N17.9 Acute kidney failure, unspecified
CPT/HCPCS: 36415; 71045-TC-FY; 76775-TC; 80053; 81003; 82550; 82728; 83605; 83615; 83735; 84100; 84484; 85025; 85379; 85610; 85651; 85730; 86140; 87040; 87086; 87804; 93005; 93010; 96361; 96365; 96366; 96367; 96372; 96375; 99285-25; C9803; G0378; J0131; J1644; U0003

== ENCOUNTER 2023-08-26 10:01 | Inpatient (IN) | payer OTHER ==
[2023-08-26 10:56] VITALS: BMI 21.2
[2023-08-26] MEDS ORDERED: SODIUM CHLORIDE 0.9% 1000 ML INFUS.BAG IV ONE (11:25)
[2023-08-26] MEDS ORDERED: ACETAMINOPHEN 1000 MG/100 ML BAG IVPB ONE (11:25)
[2023-08-26 11:32] LABS: VENOUS BASE EXCESS 3.4 mmol/L (-2-2); VENOUS O2 SATURATION 37.6 % (70-80); VENOUS PCO2 52.8 mmHg (38-52); VENOUS PH 7.374 (7.310-7.410)
[2023-08-26] MEDS ORDERED: ACETAMINOPHEN INJECTION 100 ML IVPB ONE (11:46)
[2023-08-26 11:54] LABS: INR 1.17 (0.83-1.09); PROTHROMBIN TIME (PATIENT) 13.5 SEC (9.7-13.0)
[2023-08-26 11:56] LABS: ACTIVATED PTT 33.3 SECONDS (25.2-36.5)
[2023-08-26 12:05] LABS: BASO % 0.3 % (0-2.0); EOS % 0.1 % (0-4.5); HEMATOCRIT 48.3 % (35.4-49); HEMOGLOBIN 15.9 GM/dL (11.7-16.9); LYMPH % 4.9 % (8-40); MCHC 32.9 g/dl (32.0-35.9); MEAN CELL VOLUME 85.1 fl (80-96); MEAN PLT VOLUME 6.8 fl (7.5-11.1); MONO % 4.9 % (3.8-10.2); NEUT % 89.8 % (42.8-82.8); PLATELET COUNT 207 10^3/uL (134-434); RBC 5.68 M/mm3 (4.00-5.60); RDW 15.2 % (11.9-15.9); WHITE BLOOD COUNT 15.3 K/mm3 (4.0-10.0)
[2023-08-26 12:39] LABS: EPI CELLS 2 /uL (0-25.1); HYALINE CASTS 0 /uL (0-3.1); PH,URINE 8.5 (5.0-8.0); URINE APPEARANCE CLOUDY; URINE BACTERIA 248 /uL (0-1359); URINE BILIRUBIN NEGATIVE (NEGATIVE); URINE COLOR YELLOW; URINE GLUCOSE (UA) NEGATIVE (NEGATIVE); URINE KETONE TRACE (NEGATIVE); URINE LEUK ESTERASE 3+ (NEGATIVE); URINE NITRITE NEGATIVE (NEGATIVE); URINE PROTEIN 1+ (NEGATIVE); URINE RBC 80 /uL (0-23.9); URINE UROBILINOGEN 0.2 mg/dL (0.2-1.0); URINE WBC 1856 /uL (0-25.8)
[2023-08-26] MEDS ORDERED: CEFTRIAXONE 1 GM in DEXTROSE 5%-WATER - 100 ML IVPB ONE (12:46)
[2023-08-26 12:47] LABS: LACTIC ACID 3.3 mmol/L (0.4-2.0)
[2023-08-26] MEDS ORDERED: SODIUM CHLORIDE 1,633 ML IV ONE (12:49)
[2023-08-26 12:55] LABS: ALBUMIN 3.6 g/dl (3.4-5.0); POTASSIUM 4.7 mmol/L (3.5-5.1)
[2023-08-26] MEDS ORDERED: CEFTRIAXONE 1 GM/50 ML BAG ONE (12:55)
[2023-08-26 12:56] LABS: BLOOD UREA NITROGEN 4.9 mg/dL (7-18)
[2023-08-26 12:59] LABS: BILIRUBIN,TOTAL 0.7 mg/dL (0.2-1); CREATININE 1.3 mg/dL (0.55-1.3); TOT PROT 6.5 g/dl (6.4-8.2)
[2023-08-26 13:43] LABS: LACTIC ACID 2.9 mmol/L (0.4-2.0)
[2023-08-26] MEDS: LACTATED RINGERS SOLUTION 1,000 ML/1,000 ML INFUS.BAG IV SCH (14:31)
[2023-08-26 14:35] LABS: VENOUS PCO2 45.8 mmHg (38-52); VENOUS PH 7.368 (7.310-7.410)
[2023-08-26] MEDS ORDERED: diazePAM RECTAL GEL 10 MG KIT (PRE-CALIBRATED) RC PRN (15:49)
[2023-08-26] MEDS ORDERED: OXcarbazepine 300 MG/5 ML 250 ML BULK BOTTLE PO SCH (16:00)
[2023-08-26] MEDS: BISACODYL 5 MG TABLET.DR (FP) PO SCH (17:45)
[2023-08-26] MEDS: OXcarbazepine 300 MG/5 ML UNIT DOSE CUPS PO SCH (17:47)
[2023-08-26] MEDS ORDERED: MELATONIN 5 MG TABLETS ONE (21:55)
[2023-08-26] MEDS ORDERED: HEPARIN NA (PORCINE) 5,000 UNITS/ML 1ML VIAL ONE (21:55)
[2023-08-26] MEDS ORDERED: DOCUSATE SODIUM 100 MG CAPSULE (FP) PO ONE (21:55)
[2023-08-26] MEDS: DOCUSATE SODIUM 100 MG CAPSULE (FP) PO SCH (21:58)
[2023-08-26] MEDS: HEPARIN NA (PORCINE) 5,000 UNITS/ML 1ML VIAL SQ SCH (21:58)
[2023-08-26] MEDS: MELATONIN 5 MG TABLETS PO SCH (21:58)
[2023-08-26] MEDS: levETIRAcetam 500 MG/5 ML ORAL SOLUTION (UNIT-DOSE CUPS) PO SCH (22:10)
[2023-08-27] MEDS: OXcarbazepine 300 MG/5 ML UNIT DOSE CUPS PO SCH ×3 (01:30→18:02)
[2023-08-27] MEDS: CHOLECALCIFEROL (VIT D3) 1,000 UNIT (25 MCG) TABLET PO SCH (09:15)
[2023-08-27] MEDS: LACTOBACILLUS ACIDOPHILUS 1 TABLET PO SCH (09:15)
[2023-08-27] MEDS: DOCUSATE SODIUM 100 MG CAPSULE (FP) PO SCH ×2 (09:15→22:28)
[2023-08-27] MEDS: FOLIC ACID 1 MG TABLET (FP) PO SCH (09:15)
[2023-08-27] MEDS: HEPARIN NA (PORCINE) 5,000 UNITS/ML 1ML VIAL SQ SCH ×2 (09:16→22:28)
[2023-08-27] MEDS: CEFTRIAXONE 1 GM in DEXTROSE 5%-WATER - 50 ML IVPB SCH (09:16)
[2023-08-27] MEDS: POLYETHYLENE GLYCOL (HEALTHYLAX) 3350 17 GM PACKET PO SCH (09:16)
[2023-08-27] MEDS: levETIRAcetam 500 MG/5 ML ORAL SOLUTION (UNIT-DOSE CUPS) PO SCH ×2 (09:16→22:27)
[2023-08-27 09:50] LABS: BASO % 0.3 % (0-2.0); EOS % 0.8 % (0-4.5); HEMATOCRIT 46.4 % (35.4-49); LYMPH % 19.8 % (8-40); MCHC 32.3 g/dl (32.0-35.9); MEAN CELL VOLUME 86.7 fl (80-96); MEAN PLT VOLUME 6.8 fl (7.5-11.1); NEUT % 74.1 % (42.8-82.8); PLATELET COUNT 206 10^3/uL (134-434); RBC 5.35 M/mm3 (4.00-5.60); RDW 15.4 % (11.9-15.9)
[2023-08-27] MEDS ORDERED: POTASSIUM CITRATE/CITRIC ACID 2 MEQ/ML ML PO SCH (10:00)
[2023-08-27] MEDS ORDERED: CYANOCOBALAMIN (VITAMIN B-12) 100 MCG TABLET PO SCH (10:00)
[2023-08-27 10:06] LABS: POTASSIUM 3.9 mmol/L (3.5-5.1)
[2023-08-27 10:10] LABS: ALBUMIN 3.1 g/dl (3.4-5.0); BLOOD UREA NITROGEN 5.7 mg/dL (7-18); CALCIUM 8.7 mg/dL (8.5-10.1); MAGNESIUM 1.9 mg/dL (1.8-2.4)
[2023-08-27 10:14] LABS: PHOSPHOROUS 2.7 mg/dL (2.5-4.9)
[2023-08-27 10:16] LABS: BILIRUBIN,TOTAL 0.4 mg/dL (0.2-1)
[2023-08-27] MEDS: POTASSIUM CITRATE/CITRIC ACID 2 MEQ/ML ML PO SCH (11:49)
[2023-08-27] MEDS: CYANOCOBALAMIN 1,000 MCG TABLET (FP) PO SCH (11:51)
[2023-08-27 12:25] LABS: URIC ACID 4.1 mg/dL (2.6-7.2)
[2023-08-27] MEDS ORDERED: COLCHICINE 0.6 MG CAP PO ONE (13:48)
[2023-08-27] MEDS ORDERED: COLCHICINE 0.6 MG TAB PO ONE ×2 (15:03→15:15)
[2023-08-27] MEDS: LACTATED RINGERS SOLUTION 1,000 ML/1,000 ML INFUS.BAG IV SCH (18:02)
[2023-08-27] MEDS: MELATONIN 5 MG TABLETS PO SCH (22:28)
[2023-08-28] MEDS: OXcarbazepine 300 MG/5 ML UNIT DOSE CUPS PO SCH ×3 (00:55→17:41)
[2023-08-28] MEDS: LACTOBACILLUS ACIDOPHILUS 1 TABLET PO SCH (09:34)
[2023-08-28] MEDS: FOLIC ACID 1 MG TABLET (FP) PO SCH (09:34)
[2023-08-28] MEDS: CHOLECALCIFEROL (VIT D3) 1,000 UNIT (25 MCG) TABLET PO SCH (09:34)
[2023-08-28] MEDS: CEFTRIAXONE 1 GM in DEXTROSE 5%-WATER - 50 ML IVPB SCH (09:35)
[2023-08-28] MEDS: CYANOCOBALAMIN 1,000 MCG TABLET (FP) PO SCH (09:35)
[2023-08-28] MEDS: DOCUSATE SODIUM 100 MG CAPSULE (FP) PO SCH ×2 (09:35→22:42)
[2023-08-28] MEDS: POTASSIUM CITRATE/CITRIC ACID 2 MEQ/ML ML PO SCH (09:36)
[2023-08-28] MEDS: POLYETHYLENE GLYCOL (HEALTHYLAX) 3350 17 GM PACKET PO SCH (09:38)
[2023-08-28] MEDS: levETIRAcetam 500 MG/5 ML ORAL SOLUTION (UNIT-DOSE CUPS) PO SCH ×2 (09:39→22:45)
[2023-08-28] MEDS: HEPARIN NA (PORCINE) 5,000 UNITS/ML 1ML VIAL SQ SCH ×2 (09:39→22:44)
[2023-08-28] MEDS: COLCHICINE 0.6 MG TAB PO SCH (09:43)
[2023-08-28] MEDS ORDERED: COLCHICINE 0.6 MG CAPSULE PO SCH (10:00)
[2023-08-28 10:59] LABS: BASO % 0.5 % (0-2.0); EOS % 1.2 % (0-4.5); HEMATOCRIT 44.6 % (35.4-49); HEMOGLOBIN 15.1 GM/dL (11.7-16.9); LYMPH % 23.1 % (8-40); MCHC 33.9 g/dl (32.0-35.9); MEAN CELL VOLUME 85.4 fl (80-96); MEAN PLT VOLUME 6.6 fl (7.5-11.1); MONO % 5.6 % (3.8-10.2); NEUT % 69.6 % (42.8-82.8); PLATELET COUNT 202 10^3/uL (134-434); RBC 5.22 M/mm3 (4.00-5.60); RDW 15.3 % (11.9-15.9); WHITE BLOOD COUNT 5.2 K/mm3 (4.0-10.0)
[2023-08-28 11:28] LABS: POTASSIUM 3.8 mmol/L (3.5-5.1)
[2023-08-28 11:36] LABS: ALBUMIN 3.2 g/dl (3.4-5.0)
[2023-08-28 11:37] LABS: BLOOD UREA NITROGEN 5.9 mg/dL (7-18); CALCIUM 8.8 mg/dL (8.5-10.1); MAGNESIUM 1.9 mg/dL (1.8-2.4); TOT PROT 6.5 g/dl (6.4-8.2)
[2023-08-28 11:38] LABS: BILIRUBIN,TOTAL 0.2 mg/dL (0.2-1)
[2023-08-28] MEDS: BISACODYL 5 MG TABLET.DR (FP) PO SCH (16:46)
[2023-08-28] MEDS: MELATONIN 5 MG TABLETS PO SCH (22:44)
[2023-08-29] MEDS: OXcarbazepine 300 MG/5 ML UNIT DOSE CUPS PO SCH ×2 (02:14→10:29)
[2023-08-29] MEDS: POLYETHYLENE GLYCOL (HEALTHYLAX) 3350 17 GM PACKET PO SCH (10:19)
[2023-08-29] MEDS: DOCUSATE SODIUM 100 MG CAPSULE (FP) PO SCH (10:19)
[2023-08-29] MEDS: COLCHICINE 0.6 MG TAB PO SCH (10:20)
[2023-08-29] MEDS: FOLIC ACID 1 MG TABLET (FP) PO SCH (10:20)
[2023-08-29] MEDS: CHOLECALCIFEROL (VIT D3) 1,000 UNIT (25 MCG) TABLET PO SCH (10:22)
[2023-08-29] MEDS: LACTOBACILLUS ACIDOPHILUS 1 TABLET PO SCH (10:22)
[2023-08-29] MEDS: CYANOCOBALAMIN 1,000 MCG TABLET (FP) PO SCH (10:27)
[2023-08-29] MEDS: CEFTRIAXONE 1 GM in DEXTROSE 5%-WATER - 50 ML IVPB SCH (10:28)
[2023-08-29] MEDS: HEPARIN NA (PORCINE) 5,000 UNITS/ML 1ML VIAL SQ SCH (10:30)
[2023-08-29 11:13] LABS: BASO % 0.6 % (0-2.0); EOS % 1.2 % (0-4.5); HEMATOCRIT 46.1 % (35.4-49); HEMOGLOBIN 14.9 GM/dL (11.7-16.9); LYMPH % 21.6 % (8-40); MCH 28.1 pg (25.7-33.7); MCHC 32.4 g/dl (32.0-35.9); MEAN PLT VOLUME 6.8 fl (7.5-11.1); MONO % 9.7 % (3.8-10.2); NEUT % 66.9 % (42.8-82.8); PLATELET COUNT 237 10^3/uL (134-434); RDW 15.3 % (11.9-15.9)
[2023-08-29] MEDS: levETIRAcetam 500 MG/5 ML ORAL SOLUTION (UNIT-DOSE CUPS) PO SCH (11:21)
[2023-08-29] MEDS: POTASSIUM CITRATE/CITRIC ACID 2 MEQ/ML ML PO SCH (11:24)
[2023-08-29 11:44] LABS: POTASSIUM 4.2 mmol/L (3.5-5.1)
[2023-08-29] MEDS ORDERED: CEPHALEXIN MONOHYDRATE 250 MG CAPSULE (FP) PO SCH (12:00)
[2023-08-29 12:12] LABS: ALBUMIN 3.4 g/dl (3.4-5.0); BLOOD UREA NITROGEN 7.8 mg/dL (7-18); CALCIUM 8.8 mg/dL (8.5-10.1)
[2023-08-29 12:15] LABS: CREATININE 1.1 mg/dL (0.55-1.3)
[2023-08-29 12:16] LABS: BILIRUBIN,TOTAL 0.4 mg/dL (0.2-1); TOT PROT 6.6 g/dl (6.4-8.2)
[2023-08-29 15:31] VITALS: BP 144/81; PULSE 82; RESP 16; TEMP 98
== END 2023-08-29 15:36 | DRG 720 ==
LOC: JER 10:01 → JERBED 13:13 → J8W 08-27 06:04
PROVIDERS: ADMIT Internal Medicine; ATTEND Nurse Practitioner Acute Care
DX: A41.9 Sepsis, unspecified organism (principal); R53.2 Functional quadriplegia; D72.829 Elevated white blood cell count, unspecified; G40.909 Epilepsy, unspecified, not intractable, without status epilepticus; G80.9 Cerebral palsy, unspecified; K59.00 Constipation, unspecified; M10.9 Gout, unspecified; N18.9 Chronic kidney disease, unspecified; N39.0 Urinary tract infection, site not specified; R62.50 Unspecified lack of expected normal physiological development in childhood
CPT/HCPCS: 0241U-QW; 36415; 71045-TC-FY; 73630-TC-RT-FY; 80053; 81003; 82803; 83605; 83735; 84100; 84550; 85025; 85610; 85730; 86850; 86900; 86901; 87040; 87086; 87186; 87635; 93005; 93010; 99285-25; J1644